=== PATIENT | male | born 1955 | race Caucasian/White ===

== ENCOUNTER → 2016-07-01 08:05 | Day surgery (SDC) | payer OTHER ==
[~2016-07-01 08:05] MED LIST: Acetaminophen TAB* 325 MG PO PRN; Buffered Lidocaine 1% SYR 3ML* 3 ML/SYR SYRINGE INTRADERM ONE; Cyclopentolate 1% OPTH.SOL* 2 ML BTL ONE; Flurbiprofen 0.03% OPTH.SOL* 2.5 ML BTL ONE; Lidocaine 1% MPF* 2 ML VIAL ONE; Lidocaine 2% EPI 1:200000 MPF* 20 ML VIAL ONE; Midazolam* 1 MG/ML 5 ML VIAL (5 MG) ONE; Neomycin/Polymy/Dex OPTH.SUSP* MAXITROL 0.1% 5 ML ONE; Phenylephrine 2.5% OPTH.SOL* 2 ML BTL ONE; Povidone Iodine 5% OPTH* 30 ML BTL ONE; Proparacaine 0.5% OPHTH.SOL* 15 ML BTL ONE; Trypan Blue 0.06% SOL* 0.5 ML BTL ONE; acetaZOLAMIDE TAB* 250 MG ONE
[2016-07-01 11:26] VITALS: BP 123/90
--- NOTE | 2016-07-01 11:45 | OP ---
DATE OF OPERATION: 07/01/2016. DATE OF : 1955. SURGEON: Joao Hui M.D. PREOPERATIVE DIAGNOSIS: Cataract right eye. POSTOPERATIVE DIAGNOSIS: Cataract right eye. OPERATIVE PROCEDURE: Phacoemulsification right eye with IOL. PROCEDURE: The patient was brought to the operating room after being given 1/2% Alcaine with epinep hrine drops in the preoperative area. The eye was prepped and draped in the usual sterile fashion. Sterile drape and eyelid speculum were placed. Again, topical 1/2% Alcaine with epinephrine was gi audi. A paracentesis incision was made at the 9 o'clock position with the No.75 blade. Clear cornea incision 2.2 x 2.2-mm was created at the 12 o'clock position starting at the anterior limbus using the 2.2-mm keratome. The anterior chamber was irrigated with 0.4 mL of 1% non-preservative intracam eral lidocaine and filled with DisCoVisc. A capsulorrhexis was completed using the cystotome and dominick e Utrata forceps. Hydrodissection was performed with balanced salt solution. The lens nucleus was r emoved with the Phacoemulsification handpiece without incident. Cortex was removed with the irrigat ion-aspiration handpiece. The capsular bag was re-inflated using DisCoVisc and an SN60WF 18.5 impla nt was inserted with the shooter. VisionBlue was used to sustain the anterior capsule prior to capsu lorrhexis. The irrigation-aspiration handpiece was used to remove all residual DisCoVisc. The eye was refilled with balanced salt solution and the wound checked and found to be watertight. Topical Maxitrol drops were given. Indication for complex cataract surgery: White cataract requiring capsular dye. [id number]/[facility] #: [id number]
== END | disposition home or self-care (01) ==
LOC: OREAST 08:05
PROVIDERS: ATTEND Specialist
DX: H25.811 Combined forms of age-related cataract, right eye (principal); I10 Essential (primary) hypertension; R00.2 Palpitations; J44.9 Chronic obstructive pulmonary disease, unspecified; F17.210 Nicotine dependence, cigarettes, uncomplicated
CPT/HCPCS: A9270-GY; J2250; V2632

== ENCOUNTER 2018-09-09 17:54 | Emergency (ER) | payer OTHER ==
[2018-09-09 18:10] VITALS: BP 146/82
--- NOTE | 2018-09-09 18:22 | UC ---
Respiratory Complaint HPI - HPI Summary HPI Summary: 62-year-old male comes in with a chief complaint of upper respiratory tract infection symptoms and COPD exacerbation symptoms. Patient has COPD. He uses inhalers. He got a new rescue inhaler 2 days ago it's almost empty because his been using it so much. He has had chills. His sputum is yellow. [place] very lightheaded like he might pass out this morning. He's also been having edema. No known history of CHF. I asked him about chest pain he says he has it on and off. No chest pain at this time. - History of Current Complaint Chief Complaint: UCRespiratory Stated Complaint: TROUBLE BREATHING Time Seen by Provider: 09/09/18 18:03 Pain Intensity: 0 - Allergies/Home Medications Allergies/Adverse Reactions: Allergies Allergy/AdvReac Type Severity Reaction Status Date / Time No Known Allergies Allergy Verified 09/09/18 18:10 Home Medications: Home Medications Albuterol HFA INHALER* [Ventolin HFA Inhaler*] 09/09/18 [History] Powder For Inhalation* 09/09/18 [History] PMH/Surg Hx/FS Hx/Imm Hx Previously Healthy: Yes Respiratory History: COPD - Surgical History Surgical History: Yes Surgery Procedure, Year, and Place: Tonsillectomy. Hernia Repair/Tumor Removal age 7 - Family History Known Family History: Positive: Non-Contributory - Social History Alcohol Use: None Alcohol Amount: beer 12 pack/day Substance Use Type: None Smoking Status (MU): Current Every Day Smoker Type: Cigarettes Amount Used/How Often: 1 1/2 PPD Length of Time of Smoking/Using Tobacco: 2 ppd Have You Smoked in the Last Year: Yes Household Exposure Type: Cigarettes - Immunization History Most Recent Influenza Vaccination: has not had Most Recent Tetanus Shot: 2010 he believes Most Recent Pneumonia Vaccination: approximately 10 years ago (1994/1995) Review of Systems All Other Systems Reviewed And Are Negative: Yes Constitutional: Positive: Chills Skin: Positive: Negative Eyes: Positive: Negative ENT: Positive: Nasal Discharge, Sinus Congestion Respiratory: Positive: Shortness Of Breath, Cough, Other - SEE HPI Cardiovascular: Positive: Chest Pain Gastrointestinal: Positive: Negative Motor: Positive: Negative Neurovascular: Positive: Negative Musculoskeletal: Positive: Edema Neurological: Positive: Negative Psychological: Positive: Negative Is Patient Immunocompromised?: No Physical Exam Triage Information Reviewed: Yes Appearance: No Pain Distress, Well-Nourished, Ill-Appearing - MILD, Other: - MILDLY SOB Vital Signs: Initial Vital Signs Temp 97.9 F 09/09/18 18:04 Pulse 95 09/09/18 18:04 Resp 20 09/09/18 18:04 BP 146/82 09/09/18 18:04 Pulse Ox 92 09/09/18 18:04 Vital Signs Reviewed: Yes Eye Exam: Normal Eyes: Positive: Conjunctiva Clear ENT: Positive: Pharyngeal erythema, Nasal congestion, Nasal drainage, TMs normal Neck: Positive: Supple Respiratory: Positive: No respiratory distress, Wheezing - B/L Cardiovascular: Positive: RRR Musculoskeletal: Positive: Edema @ Neurological: Positive: Alert, Muscle Tone Normal Psychological Exam: Normal Psychological: Positive: Age Appropriate Behavior Skin Exam: Normal Respiratory Course/Dx - Course Course Of Treatment: Patient's oxygen saturation is 91-92% on room air here in clinic. Patient has bilateral wheezing. He also has pedal edema. States that he's used almost all of his albuterol inhaler in 2 days. Because of all these factors I recommended further evaluation and care and treatment in the emergency department. Patient prefers to go by POV. Patient did not have altered mental status in clinic. - Differential Dx/Diagnosis Provider Diagnosis: Shortness of breath, Hypoxia, COPD (chronic obstructive pulmonary disease) Discharge - Sign-Out/Discharge Documenting (check all that apply): Patient Departure All imaging exams completed and their final reports reviewed: No Studies - Discharge Plan Condition: Stable Disposition: HOME-RECOMMEND TO ED Patient Education Materials: COPD (Chronic Obstructive Pulmonary Disease) (ED) , Hypoxia (ED), Shortness of Breath (ED) Referrals: Zoya Broderick MD [Primary Care Provider] - Additional Instructions: GO DIRECTLY TO THE EMERGENCY DEPARTMENT FOR FURTHER EVALUATION. - Billing Disposition and Condition Condition: STABLE Disposition: Home-Recommend to ED
== END 2018-09-09 18:25 | disposition home health service (06) ==
LOC: UCEAST 17:54
DX: J44.1 Chronic obstructive pulmonary disease with (acute) exacerbation (principal); R06.02 Shortness of breath; R09.02 Hypoxemia; Z79.51 Long term (current) use of inhaled steroids; F17.210 Nicotine dependence, cigarettes, uncomplicated
CPT/HCPCS: 99212; G0463

== ENCOUNTER 2018-09-09 18:49 | Observation (INO) | payer OTHER ==
[2018-09-09] MEDS ORDERED: predniSONE TAB* 20 MG PO ONE (23:45)
[2018-09-09] MEDS ORDERED: Albuterol/Ipratropium NEB.SOL* Albuterol 2.5 MG/Ipratropium 0.5 MG 3 ML INH ONE (23:45)
[2018-09-10 00:01] LABS: ABS Basophils 0 10^3/ul (0-0.2); ABS Lymphocytes 1.8 10^3/ul (1.0-4.8); ABS Monocytes 1.2 10^3/ul (0-0.8); ABS Neutrophils 5.9 10^3/ul (1.5-7.7); ABS Nucleated RBC 0 10^3/ul; Eosinophil % 10.4 %; Hematocrit 52 % (36-46); Hemoglobin 17.2 g/dL (14.0-18.0); Lymphocyte % 17.7 %; Mean Corpuscular HGB Conc 33 g/dL (31-36); Mean Corpuscular Hemoglobin 32 pg (27-31); Mean Corpuscular Volume 95 fL (80-94); Mean Platelet Volume 7.8 fL (7.4-10.4); Nucleated Red Blood Cells % 0; Platelet Count 323 10^3/uL (150-450); Red Blood Count 5.46 10^6 /uL (4.18-5.48); Red Cell Distribution Width 15 % (10.5-15)
[2018-09-10 00:26] LABS: Albumin 4.4 g/dL (3.2-5.2); Albumin/Globulin Ratio 1.5 (1-3); BUN/Creatinine Ratio 12.3 (8-20); Calcium 9.5 mg/dL (8.6-10.3); EGFR African American 117.6 (>60); EGFR Non-African American 97.2 (>60); Total Bilirubin 0.4 mg/dL (0.2-1.0); Total Protein 7.4 g/dL (6.4-8.9); Troponin I 0.01 ng/mL (<0.04)
[2018-09-10] MEDS ORDERED: Albuterol/Ipratropium NEB.SOL* Albuterol 2.5 MG/Ipratropium 0.5 MG 3 ML INH ONE (00:42)
[2018-09-10 01:13] LABS: Influenza A Molecular NEGATIVE (Negative); Influenza B Molecular NEGATIVE (Negative)
--- NOTE | 2018-09-10 02:39 | ED ---
Shortness of Breath - HPI Summary HPI Summary: Patient complains of progression or exertional SOB 1 week, subjective fever, body aches. Patient states history of intermittent fever and body aches 1 year. History of COPD. Patient states he has inhaler which he has almost used up. Denies home O2 for nebulizer. Denies change in chronic cough, sore throat , ear pain, ESCOTO, neck stiffness, CP, N/V/V abdominal pain, change in urine, change in BM. Medical history COPD. - History of Current Complaint Chief Complaint: EDShortnessOfBreath Time Seen by Provider: 09/09/18 23:37 Hx Obtained From: Patient Onset/Duration: Gradual Onset, Lasting Days Timing: Constant Current Severity: Moderate Dyspnea At: Exertion Aggrevating Factors: Movement Alleviating Factors: Bronchodilators Associated Signs & Symptoms: Fever - Allergy/Home Medications Allergies/Adverse Reactions: Allergies Allergy/AdvReac Type Severity Reaction Status Date / Time No Known Allergies Allergy Verified 09/09/18 19:02 PMH/Surg Hx/FS Hx/Imm Hx Endocrine/Hematology History: Denies: Hx Diabetes, Hx Thyroid Disease Cardiovascular History: Denies: Hx Hypertension Respiratory History: Reports: Hx Asthma, Hx Chronic Obstructive Pulmonary Disease (COPD) GI History: Denies: Hx Ulcer Sensory History: Reports: Hx Cataracts - RIGHT EYE, Hx Contacts or Glasses - GLASSES Denies: Hx Hearing Aid Opthamlomology History: Reports: Hx Cataracts - RIGHT EYE, Hx Contacts or Glasses - GLASSES Neurological History: Reports: Other Neuro Impairments/Disorders - EPISODES OF PASSING OUT- "BODY STARTS JERKING"LAST TIME 1 MONTH AGO - Surgical History Surgery Procedure, Year, and Place: Tonsillectomy. Hernia Repair/Tumor Removal age 7 Hx Anesthesia Reactions: No Infectious Disease History: No Infectious Disease History: Reports: History Other Infectious Disease - SPINAL MENINGITIS, [place] MTN FEVER Denies: Hx Clostridium Difficile, Hx Hepatitis, Hx Human Immunodeficiency Virus (HIV), Hx of Known/Suspected MRSA, Hx Shingles, Hx Tuberculosis, Traveled Outside the [place] in Last 30 Days - Family History Known Family History: Positive: Non-Contributory - Social History Alcohol Use: None Alcohol Amount: quit about a month ago Substance Use Type: Reports: None Hx Tobacco Use: Yes Smoking Status (MU): Heavy Every Day Tobacco Smoker Type: Cigarettes Amount Used/How Often: 1 1/2 PPD Length of Time of Smoking/Using Tobacco: 2 ppd Have You Smoked in the Last Year: Yes Review of Systems Positive: Fever Eyes: Negative ENT: Negative Cardiovascular: Negative Positive: Shortness Of Breath, Cough Gastrointestinal: Negative Genitourinary: Negative Musculoskeletal: Negative Skin: Negative Neurological: Negative Psychological: Normal All Other Systems Reviewed And Are Negative: Yes Physical Exam - Summary Physical Exam Summary: Bilateral wheezing consistent with COPD. Regular rate and rhythm. No obvious distress. Triage Information Reviewed: Yes Vital Signs On Initial Exam: Initial Vitals Temp Pulse Resp BP Pulse Ox 99 F 89 20 122/87 89 09/09/18 18:59 09/09/18 18:59 09/09/18 18:59 09/09/18 18:59 09/09/18 18:59 Vital Signs Reviewed: Yes Appearance: Positive: Well-Appearing Skin: Positive: Warm Head/Face: Positive: Normal Head/Face Inspection Eyes: Positive: Normal Neck: Positive: Supple Respiratory/Lung Sounds: Positive: Wheezes Cardiovascular: Positive: Normal Abdomen Description: Positive: Nontender Musculoskeletal: Positive: Normal Neurological: Positive: Normal Psychiatric: Positive: Normal AVPU Assessment: Alert - Tia Coma Scale Best Eye Response: 4 - Spontaneous Best Motor Response: 6 - Obeys Commands Best Verbal Response: 5 - Oriented Coma Scale Total: 15 Diagnostics - Vital Signs Vital Signs Temp Pulse Resp BP Pulse Ox 09/10/18 01:20 78 19 127/76 92 09/10/18 01:01 81 16 95 09/10/18 01:00 72 17 91 09/10/18 00:49 77 17 112/87 90 09/10/18 00:23 81 22 92 09/10/18 00:20 85 26 133/85 91 09/10/18 00:02 88 89 09/09/18 23:53 87 14 96 09/09/18 20:50 98.2 F 86 20 124/69 91 09/09/18 19:16 94 09/09/18 18:59 99 F 89 20 122/87 89 - Laboratory Lab Results: Lab Results 09/09/18 09/09/18 09/09/18 Range/Units 23:53 23:53 23:53 WBC 10.0 (3.5-10.8) 10^3/uL RBC 5.46 (4.18-5.48) 10^6 /uL Hgb 17.2 (14.0-18.0) g/dL Hct 52 H (36-46) % MCV 95 H (80-94) fL MCH 32 H (27-31) pg MCHC 33 (31-36) g/dL RDW 15 (10.5-15) % Plt Count 323 (150-450) 10^3/uL MPV 7.8 (7.4-10.4) fL Neut % (Auto) 59.7 % Lymph % (Auto) 17.7 % [facility] % (Auto) 11.7 % Eos % (Auto) 10.4 % Baso % (Auto) 0.5 % Absolute Neuts (auto) 5.9 (1.5-7.7) 10^3/ul Absolute Lymphs (auto) 1.8 (1.0-4.8) 10^3/ul Absolute Monos (auto) 1.2 H (0-0.8) 10^3/ul Absolute Eos (auto) 1.0 H (0-0.6) 10^3/ul Absolute Basos (auto) 0 (0-0.2) 10^3/ul Absolute Nucleated RBC 0 10^3/ul Nucleated RBC % 0 ABG pH (7.35-7.45) ABG pCO2 (35-45) mmHg ABG pO2 (80-100) mmHg ABG HCO3 (19-31) mmol/L ABG O2 Saturation (94.0-98.0) % ABG Base Excess (-2.0-2.0) mmol/L Sodium 140 (135-145) mmol/L Potassium 4.0 (3.5-5.0) mmol/L Chloride 107 (101-111) mmol/L Carbon Dioxide 27 (22-32) mmol/L Anion Gap 6 (2-11) mmol/L BUN 10 (6-24) mg/dL Creatinine 0.81 (0.67-1.17) mg/dL Est GFR ( Amer) 117.6 (>60) Est GFR (Non-Af Amer) 97.2 (>60) BUN/Creatinine Ratio 12.3 (8-20) Glucose 90 (70-100) mg/dL Lactic Acid 1.3 (0.5-2.0) mmol/L Calcium 9.5 (8.6-10.3) mg/dL Total Bilirubin 0.40 (0.2-1.0) mg/dL AST 19 (13-39) U/L ALT 21 (7-52) U/L Alkaline Phosphatase 51 (34-104) U/L Troponin I 0.01 (<0.04) ng/mL Total Protein 7.4 (6.4-8.9) g/dL Albumin 4.4 (3.2-5.2) g/dL Globulin 3.0 (2-4) g/dL Albumin/Globulin Ratio 1.5 (1-3) Influenza A (Rapid) (Negative) Influenza B (Rapid) (Negative) 09/10/18 09/10/18 Range/Units 01:01 02:24 WBC (3.5-10.8) 10^3/uL RBC (4.18-5.48) 10^6 /uL Hgb (14.0-18.0) g/dL Hct (36-46) % MCV (80-94) fL MCH (27-31) pg MCHC (31-36) g/dL RDW (10.5-15) % Plt Count (150-450) 10^3/uL MPV (7.4-10.4) fL Neut % (Auto) % Lymph % (Auto) % [facility] % (Auto) % Eos % (Auto) % Baso % (Auto) % Absolute Neuts (auto) (1.5-7.7) 10^3/ul Absolute Lymphs (auto) (1.0-4.8) 10^3/ul Absolute Monos (auto) (0-0.8) 10^3/ul Absolute Eos (auto) (0-0.6) 10^3/ul Absolute Basos (auto) (0-0.2) 10^3/ul Absolute Nucleated RBC 10^3/ul Nucleated RBC % ABG pH 7.39 (7.35-7.45) ABG pCO2 46 H (35-45) mmHg ABG pO2 52 L* (80-100) mmHg ABG HCO3 26.3 (19-31) mmol/L ABG O2 Saturation 86.6 L (94.0-98.0) % ABG Base Excess 2.2 H (-2.0-2.0) mmol/L Sodium (135-145) mmol/L Potassium (3.5-5.0) mmol/L Chloride (101-111) mmol/L Carbon Dioxide (22-32) mmol/L Anion Gap (2-11) mmol/L BUN (6-24) mg/dL Creatinine (0.67-1.17) mg/dL Est GFR ( Amer) (>60) Est GFR (Non-Af Amer) (>60) BUN/Creatinine Ratio (8-20) Glucose (70-100) mg/dL Lactic Acid (0.5-2.0) mmol/L Calcium (8.6-10.3) mg/dL Total Bilirubin (0.2-1.0) mg/dL AST (13-39) U/L ALT (7-52) U/L Alkaline Phosphatase (34-104) U/L Troponin I (<0.04) ng/mL Total Protein (6.4-8.9) g/dL Albumin (3.2-5.2) g/dL Globulin (2-4) g/dL Albumin/Globulin Ratio (1-3) Influenza A (Rapid) Negative (Negative) Influenza B (Rapid) Negative (Negative) Result Diagrams: 09/09/18 23:53 09/09/18 23:53 Lab Statement: Any lab studies that have been ordered have been reviewed, and results considered in the medical decision making process. Course/Dx - Course Course Of Treatment: Patient complains of progression or exertional SOB 1 week , subjective fever, body aches. Patient states history of intermittent fever and body aches 1 year. History of COPD. Patient states he has inhaler which he has almost used up. Denies home O2 for nebulizer. Denies change in chronic cough, sore throat, ear pain, ESCOTO, neck stiffness, CP, N/V/V abdominal pain, change in urine, change in BM. Medical history COPD. Physical exam:Bilateral wheezing consistent with COPD. Regular rate and rhythm. No obvious distress. O2 sats on room air 85%. Vital signs otherwise unremarkable. PO2 52. Labs otherwise unremarkable. Chest x-ray negative. EKG sinus rhythm. Patient lung sounds did not improve after DuoNeb 2. Prednisone 60 mg by mouth. Patient O2 sats was ambulated dropped to low 80s. Patient admitted to hospitalist for COPD exacerbation and hypoxia. - Diagnoses Provider Diagnoses: COPD exacerbation, Hypoxia Discharge - Sign-Out/Discharge Documenting (check all that apply): Patient Departure Patient Received Moderate/Deep Sedation with Procedure: No - Discharge Plan Condition: Fair Disposition: ADMITTED TO [facility] Referrals: Zoya Broderick MD [Primary Care Provider] - - Billing Disposition and Condition Condition: FAIR Disposition: Admitted to [facility]
[2018-09-10] MEDS ORDERED: Albuterol HFA INHALER* 8 gm MDI INH PRN (04:03)
[2018-09-10] MEDS ORDERED: Acetaminophen TAB* 325 MG PO PRN (04:05)
[2018-09-10] MEDS ORDERED: Albuterol 2.5 MG/3 ML NEB.SOL* (0.083%) INH PRN (04:05)
[2018-09-10] MEDS ORDERED: Nicotine Inhaler* 10 MG AMP INH PRN (04:14)
[2018-09-10] MEDS ORDERED: Mouth Piece, Nicotine* 1 EACH CARTRIDGE INH ONE (04:50)
[2018-09-10] MEDS ORDERED: LORazepam TAB(*) 1 MG PO SCH (05:00)
[2018-09-10] MEDS: cefTRIAXone(*) 1 GM in NS 0.9% 50 ML* 50 ML IVPB SCH (05:59)
[2018-09-10] MEDS: Heparin VIAL(*) 5000 UNITS/ML VIAL (FIVE THOUSAND) SUBCUT SCH ×3 (06:23→21:19)
[2018-09-10] MEDS: Azithromycin IV(*) 500 MG in NS 0.9% 250 ML* 250 ML IVPB SCH (07:00)
--- NOTE | 2018-09-10 07:58 | HP ---
CC: Dr. Broderick * HISTORY AND PHYSICAL: DATE OF ADMISSION: 09/10/18 TIME OF EVALUATION: 3:55 a.m. PRIMARY CARE PROVIDER: Dr. Broderick. CHIEF COMPLAINT: Shortness of breath. HISTORY OF PRESENT ILLNESS: Mr. Mehta is a 62-year-old male with a past medical history of tobacco abuse, alcohol abuse, COPD, who presented to the emergency room with complaints of shortness of breath. He states that a week ago, he started to have progressive dyspnea initially with exertion, but then now it is also happening at rest. He describes a productive cough with whitish sputum that is not much different from his usual COPD cough. He thinks he had a fever at home, but has not measured a temperature. He denies chest pain, palpitations, nausea, vomiting, diarrhea, abdominal pain or urinary complaints. PAST MEDICAL HISTORY: 1. Tobacco abuse. 2. Alcohol abuse. 3. COPD. MEDICATIONS: 1. Albuterol HFA two puffs inhale q.6 hours p.r.n. shortness of breath. 2. Spiriva one puff inhale daily. 3. Advair 500/50 one puff inhale b.i.d. ALLERGIES: No known drug allergies. FAMILY HISTORY: The patient states that he has a strong family history of diabetes including his mother and sisters. SOCIAL HISTORY: The patient is a smoker since age 12 up to 2 packs a day. He states that since his symptoms started he has cutdown and one pack lasted him a week. He also describes significant alcohol intake of 10 to 12 beers every day. He states that usually he used to drink that when he was back home from work, but now that he is retired, he is drinking less. He stated that this past week because he was not feeling well, he has not had any alcohol. He denies any prior episodes of withdrawal. He denies drug use. 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 Surrogate decision maker is his daughter, Syl Mehta, phone number is [phone]. REVIEW OF SYSTEMS: A 14-point review of systems was performed and all the pertinent negative and positive findings are in the HPI. PHYSICAL EXAMINATION GENERAL: The patient is a pleasant elderly gentleman, sitting up in the ED stretcher, in no acute distress. VITAL SIGNS: Temperature is 98.2, heart rate is 93, respiratory rate is 19, oxygen saturation is 92% on 2 L of nasal cannula. Blood pressure is 127/76. HEENT: Pupils are equal. Moist mucous membranes. CHEST: Breath sounds bilaterally diminished with scattered wheeze and rhonchi throughout. CVS: Normal S1, S2. Regular rate and rhythm. ABDOMEN: Soft. Bowel sounds present. EXTREMITIES: Without edema. NEUROLOGIC: He is alert and oriented x3. Able to move all 4 extremities. DIAGNOSTIC STUDIES/LAB DATA: The patient had a CBC that showed WBC of 10, hemoglobin of 17.2, hematocrit of 52, with 323,000 platelets. D-dimer was 210. ABG showed a pH of 7.39, PCO2 of 46, PO2 of 52, bicarb of 26.3. Chemistries showed a sodium of 140, potassium 4.0, chloride of 107, bicarb of 27, BUN of 10 , creatinine of 0.8, glucose of 90, lactic acid is 1.3, calcium of 9.5. LFTs are normal. Troponins are 0.01. Rapid influenza was negative. EKG done on 09/09/18 at 7:06 p.m. shows sinus rhythm at 85 beats per minute with no acute ischemic change. There is incomplete right bundle branch block and a left fascicular block. There is no significant change when compared to his prior EKG from 2016. Chest x-ray is not yet officially read by Radiology, but to my read it shows hyperinflation, but no signs of acute pulmonary disease. I do not see pneumothorax, but we will follow the official radiologist report. ASSESSMENT AND PLAN: Mr. Mehta is a 62-year-old male with a past medical history of tobacco abuse, alcohol abuse, COPD, who presented to the emergency room with complaints of shortness of breath and cough, found to have COPD exacerbation. 1. Acute hypoxemic respiratory failure. I suspect the patient has probably been hypoxic for sometime, but was unaware. In the emergency room, he decelerated to 86% on room air with ambulation. We will continue supplemental oxygen. 2. Acute chronic obstructive pulmonary disease exacerbation secondary to bronchitis. The patient's chest x-ray does not show an infiltrate. He will be started on ceftriaxone, Zithromax, steroids and we will continue his bronchodilators. 3. Tobacco abuse. The patient was encouraged to quit smoking and he was advised about the risks of continuing to smoke including but not limited to progression of lung disease and multiple types of cancer as well as heart and vascular disease. 4. Alcohol abuse. The patient says that he has already cutdown on the amount of alcohol he drinks. I will put him on a [facility] protocol to monitor, but at this time there is no sign of withdrawal. 5. DVT prophylaxis. The patient has a score of 2 on the DVT Prophylaxis Assessment Guide and he will be started on subcutaneous heparin. 6. Code status is full. TIME SPENT: Approximately 45 minutes was spent with the patient interview, medical records review, physical examination to complete this admission, more than half of this time was spent [id number] with the patient in coordination of care. [id number]/[facility] #: [id number] EMMANUEL
[2018-09-10] MEDS: Mometasone/Formoter 200/5 MDI INH SCH ×2 (08:32→19:06)
[2018-09-10] MEDS: Multivitamins/Minerals TAB PO SCH (09:10)
[2018-09-10] MEDS: Folic Acid TAB* 1 MG PO SCH (09:10)
[2018-09-10] MEDS: Thiamine TAB* 100 MG TAB PO SCH (09:11)
[2018-09-10] MEDS: predniSONE TAB* 20 MG PO SCH (09:11)
[2018-09-10] MEDS: TIOTROPIUM BROMIDE INH SCH (09:20)
--- NOTE | 2018-09-10 16:22 | PN ---
Subjective Date of Service: 09/10/18 Interval History: Mr. Mehta is feeling much better today. His SOB has resolved and his cough has improved significantly. He has been up ambulating to the bathroom and has not experienced any SOB. Less sputum production. Anxious to go home. Reports he has a dog at home alone and does not have heat. He does not have anyone that can feed his dog or watch his home. Says he needs to leave early tomorrow morning at the latest. Nursing titrated oxygen down from 4L to 2L. Family History: Unchanged from Admission Social History: Unchanged from Admission Past Medical History: Unchanged from Admission Objective Active Medications: Acetaminophen (Tylenol Tab*) 650 mg PO Q6H PRN pain/fever Albuterol (Ventolin Hfa Inhaler*) 1 puff INH Q6H PRN SOB/WHEEZING Albuterol (Ventolin 2.5 Mg/3 Ml Neb.Concepcion*) 2.5 mg INH Q4H PRN SOB/WHEEZING Folic Acid (Folvite Tab*) 1 mg PO DAILY [facility] Heparin Sodium (Porcine) (Heparin Vial(*)) 5,000 units SUBCUT Q8HR MEAGAN Ceftriaxone Sodium 1 gm/ (Sodium Chloride) 50 mls @ 200 mls/hr IVPB Q24H MEAGAN Azithromycin 500 mg/ Sodium (Chloride) 250 mls @ 250 mls/hr IVPB Q24H MEAGAN Mometasone Furoate/Formoterol Fumar (Dulera 200/5 Mdi*) 2 puff INH BID MEAGAN Multivitamins/Minerals (Theragran/Minerals Tab*) 1 tab PO DAILY [facility] Nicotine (Nicotine Inhaler*) 10 mg INH Q2H PRN CRAVING Prednisone (Deltasone Tab*) 40 mg PO DAILY [facility] Thiamine HCl (Vitamin B-1 Tab*) 100 mg PO DAILY [facility] Tiotropium [place] (Spiriva Respimat 2.5 Mcg(Nf)) 1 puff INH DAILY [facility] Oxygen Devices in Use Now: Nasal Cannula - 2L Appearance: Middle-aged male sitting in bed in NAD Eyes: No Scleral Icterus Ears/Nose/Mouth/Throat: Mucous Membranes Moist Neck: NL Appearance and Movements; NL JVP, Trachea Midline Respiratory: Symmetrical Chest Expansion and Respiratory Effort, - - Mild wheezing throughout Cardiovascular: NL Sounds; No Murmurs; No JVD, RRR Abdominal: NL Sounds; No Tenderness; No Distention Extremities: No Edema Skin: No Rash or Ulcers Neurological: Alert and Oriented x 3 Lines/Tubes/Other Access: Clean, Dry and Intact Peripheral IV Nutrition: Taking PO's Result Diagrams: 09/09/18 23:53 09/09/18 23:53 Assess/Plan/Problems-Billing Assessment: Mr. Mehta is a 62 yo M with PMH of COPD, tobacco use, and alcohol abuse; who presented to the ED with c/o SOB and was found to have a COPD exacerbation with acute respiratory failure. - Patient Problems (1) COPD exacerbation Code(s): J44.1 - CHRONIC OBSTRUCTIVE PULMONARY DISEASE W (ACUTE) EXACERBATION Comment: - Secondary to bronchitis - CXR shows obstructive lung disease, but no pneumonia - Continue ceftriaxone, azithromycin, prednisone, Dulera, Spiriva, nebs (2) Acute respiratory failure with hypoxia Code(s): J96.01 - ACUTE RESPIRATORY FAILURE WITH HYPOXIA Comment: - Secondary to COPD exacerbation - Requiring up to 4L, now down to 2L and saturating in the low 90s - Plan as above (3) Tobacco dependence Code(s): F17.200 - NICOTINE DEPENDENCE, UNSPECIFIED, UNCOMPLICATED Comment: - Encourage cessation - Continue nicotine inhaler (4) Alcohol abuse Code(s): F10.10 - ALCOHOL ABUSE, UNCOMPLICATED Comment: - Was placed on WAM, but was not showing symptoms of withdrawal and has not had a drink in approx 1 week - Encourage abstinence - WAM d/c'd - Continue folic acid, multivitamin, thiamine (5) DVT prophylaxis Comment: - Heparin SQ (6) Full code status Code(s): Z78.9 - OTHER SPECIFIED HEALTH STATUS Comment: Status and Disposition: Observation for COPD exacerbation. Anticipate d/c home when saturating well on RA, hopefully tomorrow AM. Attending: Kian Mcdonnell
[2018-09-11] MEDS: cefTRIAXone(*) 1 GM in NS 0.9% 50 ML* 50 ML IVPB SCH (04:57)
[2018-09-11] MEDS: Heparin VIAL(*) 5000 UNITS/ML VIAL (FIVE THOUSAND) SUBCUT SCH (05:00)
[2018-09-11] MEDS: Azithromycin IV(*) 500 MG in NS 0.9% 250 ML* 250 ML IVPB SCH (05:30)
[2018-09-11 07:56] VITALS: BP 115/74
[2018-09-11] MEDS: predniSONE TAB* 20 MG PO SCH (08:05)
[2018-09-11] MEDS: Folic Acid TAB* 1 MG PO SCH (08:05)
[2018-09-11] MEDS: Multivitamins/Minerals TAB PO SCH (08:05)
[2018-09-11] MEDS: Thiamine TAB* 100 MG TAB PO SCH (08:05)
[2018-09-11] MEDS: Mometasone/Formoter 200/5 MDI INH SCH (08:11)
[2018-09-11] MEDS ORDERED: Nicotine PATCH 21 MG/24 HR* PATCH TRANSDERM SCH (10:00)
[2018-09-11] MEDS: TIOTROPIUM BROMIDE INH SCH (10:06)
[2018-09-11] MEDS ORDERED: Nicotine Patch Removal NOTE PATCH OFF SCH (21:00)
--- NOTE | 2018-09-11 22:26 | DS ---
CC: Dr. Zoya Broderick * DISCHARGE SUMMARY: DATE OF ADMISSION: 09/10/18 DATE OF DISCHARGE: 09/11/18 PRIMARY CARE PROVIDER: Dr. Zoya Broderick. ATTENDING PHYSICIAN: Dr. Kian Mcdonnell * (dictated by Brenad Lopez NP) PRIMARY DIAGNOSES: 1. Chronic obstructive pulmonary disease exacerbation. 2. Acute hypoxic respiratory failure. SECONDARY DIAGNOSES: 1. Tobacco dependence. 2. Alcohol abuse. STUDIES WHILE IN THE HOSPITAL: 1. EKG on 09/09/18 shows normal sinus rhythm with a rate of 85. EKG reports 55 , incomplete right bundle-branch block, this is consistent with previous EKGs on file. 2. Chest x-ray on 09/01/18 reads as stigmata of obstructive lung disease. No acute pulmonary or cardiac process evident. HISTORY OF PRESENT ILLNESS AND HOSPITAL COURSE: Mr. Mehta is a 62-year-old with past medical history of COPD and alcohol abuse, who presented to the emergency room on 09/09/18 with complaints of shortness of breath. Please see the history and physical by Dr. Buchanan for complete summary of the events leading up to this hospitalization. In short, the patient is a current smoker, who has been previously diagnosed with COPD. He was developing progressive shortness of breath at home on exertion, though abnormally this shortness of breath progressed to shortness of breath at rest, so he presented to the emergency room. In the emergency room, he was noted to be hypoxic with an oxygen saturation of 86% on room air with ambulation. He had an ABG with a pH of 7.39, pO2 was noted to be 52, and pCO2 was 46. Because of this acute hypoxic respiratory failure, the patient was admitted by the hospitalist service. He was placed on ceftriaxone, azithromycin for presumed bronchitis. He was initially placed on prednisone. He was requiring up to 4 L of oxygen to maintain saturations in the 90s. During the day on 09/10/18, the patient did report feeling improved and reported no shortness of breath on exertion. He was able to be titrated down to 2 L at rest. As of today, the patient is still requiring supplemental oxygen. He is very adamant that he needs to return home as he does not have heat in his house and he needs to feed his dogs. He does not have anyone who is able to help him with those things. I did have the nurse do a walk test with him and he was noted to desaturate to 84% while ambulating on room air. I did have a very long conversation with the patient about his diagnosis of COPD, his tobacco dependence, and treatment of this current exacerbation. The patient does have capacity and was able to verbalize the risks of leaving against medical advice such as hypoxia, worsening respiratory failure, respiratory arrest or . He reports that he lives at home in the trailer and said he does not have very far to ambulate at home and feels as though he will do fine. Mr. Mehta is leaving against medical advice today. Most recent vital signs are as follows: Temp 97.5, heart rate 75, respiratory rate 14, oxygen saturation 91% on 3 L, nasal cannula at rest, blood pressure 115/74. DISCHARGE MEDICATIONS: New medications: 1. Amoxicillin 1000 mg p.o. t.i.d. x3 days. 2. Azithromycin 500 mg p.o. daily x3 days. 3. Folic acid 1 mg p.o. daily. 4. Multivitamin 1 tab p.o. daily. 5. Nicotine patch 21 mg 1 patch transdermal daily. 6. Thiamine 100 mg p.o. daily. 7. Prednisone 10 mg taper (take 3 tabs for 2 days, then 2 tabs for 2 tabs, then 1 tab for 2 days). Continued medications: 1. Albuterol MDI 2 puffs q.4 hours p.r.n. shortness of breath wheezing. 2. Advair Diskus 500/50 one puff b.i.d. 3. Spiriva Respimat 2 puffs daily. DISCHARGE PLAN: Mr. Mehta will be leaving against medical advice today. Activity will be as tolerated though he has been advised to partake in minimal activity due to his known hypoxia with exertion. Diet will be regular as tolerated. Medications are noted above. Although the patient is leaving against medical advice, it is still necessary to treat him accordingly and to the best of my ability. I have prescribed him an additional 3 days of amoxicillin and azithromycin to complete a total of 5 days of antibiotic therapy for his presumed bronchitis and COPD exacerbation. I have prescribed a prednisone taper. I did speak at length with the patient about smoking cessation and the need to quit smoking in order to prevent further rapid deterioration in his respiratory status. He was agreeable to try nicotine patches and so I have sent in a script for those. The patient did report to me that prior to admission to the hospital, he used 1 full albuterol MDI within 2 days. I did speak at length with the patient about this and advised to him that he is not to take more than 2 puffs every 4 hours of albuterol as he can overdose from this medication and ultimately could . I have sent in a refill for his albuterol. He can continue his other usual medications as noted and I would recommend him continuing to take a multivitamin, thiamine, and folic acid due to his chronic alcohol abuse. Again, ideally the patient would remain hospitalized due to his continued hypoxia and need for supplemental oxygen, though he is not agreeable to this. He reports that he will speak with his PCP and attempt to obtain home oxygen, though he was not willing to wait here today to do so. He should follow up with his PCP as soon as possible, preferably within the next week. He does report that he has a surtass analyst in the [facility], which he has not seen for 2 years, though he will be making an appointment. He has been advised to return to the emergency room or nearest hospital for any worsening of symptoms, shortness of breath, lightheadedness, dizziness, chest discomfort, high fevers, chills, night sweats , loss of consciousness, or any other worrisome signs or symptoms. DISCHARGE CONDITION: Fair. DISCHARGE DISPOSITION: Against medical advice. This is a summarized report of a complex medical history and hospital stay. For further details, please see the entire medical record. TIME SPENT: Approximately 60 minutes was spent on this discharge. BRENDA LOPEZ NP [id number]/CPS #: [id number] EMMANUEL
== END 2018-09-11 12:00 | disposition left against medical advice (07) ==
LOC: ED 18:49 → MED 09-10 03:56
PROVIDERS: ADMIT Internal Medicine; ATTEND Internal Medicine
DX: J44.1 Chronic obstructive pulmonary disease with (acute) exacerbation (principal); J96.01 Acute respiratory failure with hypoxia; F17.210 Nicotine dependence, cigarettes, uncomplicated; F10.10 Alcohol abuse, uncomplicated; R50.9 Fever, unspecified
CPT/HCPCS: 36415; 71046; 80053; 82803; 83605; 84484; 85025; 85379; 87040; 93005; 94640; 96365; 96366; 96372; 99284; A9270-GY; G0378; J0456; J0696; J1644; J7512

== ENCOUNTER 2018-11-04 20:29 | Inpatient (IN) | payer MEDICARE, MEDICAID ==
[2018-11-04] MEDS ORDERED: Albuterol 0.5% CONC NEB.SOL* 5 MG/ML 20 ml BOT INH ONE (20:37)
[2018-11-04] MEDS ORDERED: cefTRIAXone(*) 1 GM in NS 0.9% 50 ML* 50 ML IVPB ONE (20:37)
[2018-11-04] MEDS ORDERED: methylPREDNISolone 125 MG* 2 ML VIAL IV ONE (20:37)
[2018-11-04] MEDS ORDERED: Azithromycin 500 mg/250 ml NS 500 MG/250 ML BAG IVPB ONE (20:37)
--- NOTE | 2018-11-04 20:59 | ED ---
Shortness of Breath - HPI Summary HPI Summary: Pt is a 62 y/o M presenting to the ED brought in by EMS for shortness of breath first onset last night. He states he has COPD and his Oxygen level was down to 76 last night, and his SOB has gotten worse throughout the day. He also reports chest tightness and hx of smoking, but denies fevers or hx of HTN and DM. - History of Current Complaint Chief Complaint: EDShortnessOfBreath Time Seen by Provider: 11/04/18 20:34 Hx Obtained From: Patient Onset/Duration: Sudden Onset, Lasting Days, Still Present Timing: Constant Current Severity: Moderate Dyspnea At: Rest Aggrevating Factors: Nothing Alleviating Factors: Nothing Associated Signs & Symptoms: Chest Pain Unrelated to Cough - Allergy/Home Medications Allergies/Adverse Reactions: Allergies Allergy/AdvReac Type Severity Reaction Status Date / Time No Known Allergies Allergy Verified 09/09/18 19:02 PMH/Surg Hx/FS Hx/Imm Hx Previously Healthy: No Endocrine/Hematology History: Denies: Hx Diabetes, Hx Thyroid Disease Cardiovascular History: Denies: Hx Hypertension Respiratory History: Reports: Hx Asthma, Hx Chronic Obstructive Pulmonary Disease (COPD) GI History: Denies: Hx Ulcer Sensory History: Reports: Hx Cataracts - RIGHT EYE, Hx Contacts or Glasses - GLASSES Denies: Hx Hearing Aid Opthamlomology History: Reports: Hx Cataracts - RIGHT EYE, Hx Contacts or Glasses - GLASSES Neurological History: Reports: Other Neuro Impairments/Disorders - EPISODES OF PASSING OUT- "BODY STARTS JERKING"LAST TIME 1 MONTH AGO - Surgical History Surgery Procedure, Year, and Place: Tonsillectomy. Hernia Repair/Tumor Removal age 7 Hx Anesthesia Reactions: No - Immunization History Date of Tetanus Vaccine: utd Date of Influenza Vaccine: none Infectious Disease History: No Infectious Disease History: Reports: History Other Infectious Disease - SPINAL MENINGITIS, WALLACE MTN FEVER Denies: Hx Clostridium Difficile, Hx Hepatitis, Hx Human Immunodeficiency Virus (HIV), Hx of Known/Suspected MRSA, Hx Shingles, Hx Tuberculosis, Traveled Outside the [place] in Last 30 Days - Family History Known Family History: Negative: Cardiac Disease - Social History Alcohol Use: Rare Alcohol Amount: pt states none for one month now Hx Substance Use: No Substance Use Type: Reports: None Hx Tobacco Use: Yes Smoking Status (MU): Heavy Every Day Tobacco Smoker Type: Cigarettes Amount Used/How Often: 1 1/2 PPD Length of Time of Smoking/Using Tobacco: 2 ppd Have You Smoked in the Last Year: Yes Review of Systems Negative: Fever Positive: Chest Pain Positive: Shortness Of Breath All Other Systems Reviewed And Are Negative: Yes Physical Exam - Summary Physical Exam Summary: Appearance: Chronically ill-appearing, Well-nourished, lying in bed comfortably Skin: Warm, dry, no obvious rash Eyes: sclera anicteric, no conjunctival pallor ENT: mucous membranes moist, pharynx appears normal Neck: Supple, nontender Respiratory: Mild tachypnea, speaking in full sentences but does have diffuse expiratory wheezes with mildly impaired aeration and prolonged expiration. Cardiovascular: Normal S1, S2. No murmurs. Normal distal pulses in tibial and radial bilaterally. Abdomen: Soft, nontender, normal active bowel sounds present Musculoskeletal: No significant edema in bilateral legs, Strength/ROM Intact Neurological: A&Ox3, awake and alert, mentation is normal, speech is fluent and appropriate Psychiatric: affect is normal, does not appear anxious or depressed Triage Information Reviewed: Yes Vital Signs On Initial Exam: Initial Vitals Temp Pulse Resp BP Pulse Ox 98.5 F 94 19 134/90 90 11/04/18 20:33 11/04/18 20:33 11/04/18 20:33 11/04/18 20:33 11/04/18 20:33 Vital Signs Reviewed: Yes Diagnostics - Vital Signs Vital Signs Temp Pulse Resp BP Pulse Ox 11/04/18 20:33 98.5 F 94 19 134/90 90 - Laboratory Result Diagrams: 11/06/18 07:37 11/06/18 07:37 Lab Statement: Any lab studies that have been ordered have been reviewed, and results considered in the medical decision making process. - Radiology CXR Radiology Interpretation Completed By: ED Physician Summary of Radiographic Findings: No acute process. Pending official radiology report. - EKG 2033 Cardiac Rate: NL - 96bpm EKG Rhythm: Sinus Rhythm ST Segment: Normal Ectopy: None Summary of EKG Findings: EKG at 2033 shows NSR at 96bpm and RVH with secondary repolarization that is abnormal, but no STEMI. Course/Dx - Course Course Of Treatment: Pt is a 62 y/o M presenting to the ED brought in by EMS for shortness of breath first onset last night. He states he has COPD and his Oxygen level was down to 76 last night, and his SOB has gotten worse throughout the day. He also reports chest tightness and hx of smoking, but denies fevers or hx of HTN and DM. EKG at 2033 shows NSR at 96bpm and RVH with secondary repolarization that is abnormal, but no STEMI. In the ED course, the pt was given an Albuterol breathing tx as well as Azithromycin, Methylprednisolone, and Ceftriaxone. CXR shows no acute process, pending official radiology report. Pts VBG shows pH of 7.3, pCO2 of 75, HCO3 of 29.3, O2 sat of 42.1, and base excess of 7.6. I spoke with Dr. Casanova at 2221 about the pt's present condition who [place] [facility] [place]. - Diagnoses Differential Diagnosis/HQI/PQRI: Positive: Asthma, Bronchitis, CHF, Pneumonia, Pneumothorax, Pulmonary Embolism, Pulmonary Edema Provider Diagnoses: COPD (chronic obstructive pulmonary disease) - Critical Care Time Critical Care Time: 30-74 min Discharge - Sign-Out/Discharge Documenting (check all that apply): Patient Departure Patient Received Moderate/Deep Sedation with Procedure: No - Discharge Plan Condition: Stable Disposition: ADMITTED TO [facility] - Billing Disposition and Condition Condition: STABLE Disposition: Admitted to [facility] - Attestation Statements Document Initiated by Terence: Yes Documenting Scribe: Cathi Wang Provider For Whom Terence is Documenting (Include Credential): Jamison Morris MD. Scribe Attestation: ICathi, scribed for Jamison Morris MD. on 11/08/18 at 1849. Scribe Documentation Reviewed: Yes Provider Attestation: The documentation as recorded by the Cathi silver accurately reflects the service I personally performed and the decisions made by me, Jamison Morris MD. Status of Scribe Document: Viewed Consult Consult: 2221 - I spoke with Dr. Casanova about the pt's present condition who will be [place] the [place] [facility] [place] dx of [place].
[2018-11-04 21:33] LABS: ABS Basophils 0.1 10^3/ul (0-0.2); ABS Eosinophils 0.5 10^3/ul (0-0.6); ABS Lymphocytes 2.1 10^3/ul (1.0-4.8); ABS Monocytes 0.8 10^3/ul (0-0.8); ABS Neutrophils 4.2 10^3/ul (1.5-7.7); Eosinophil % 6.5 %; Hematocrit 54 % (42-52); Hemoglobin 17.7 g/dL (14.0-18.0); Lymphocyte % 27.4 %; Mean Corpuscular HGB Conc 33 g/dL (31-36); Mean Corpuscular Hemoglobin 31 pg (27-31); Mean Corpuscular Volume 94 fL (80-94); Mean Platelet Volume 7.9 fL (7.4-10.4); Platelet Count 270 10^3/uL (150-450); Red Blood Count 5.72 10^6 /uL (4.18-5.48); Red Cell Distribution Width 14 % (10.5-15); White Blood Count 7.6 10^3/uL (3.5-10.8)
[2018-11-04 21:52] LABS: Albumin 4.3 g/dL (3.2-5.2); Albumin/Globulin Ratio 1.3 (1-3); BUN/Creatinine Ratio 9.5 (8-20); Calcium 9.8 mg/dL (8.6-10.3); EGFR African American 130.5 (>60); EGFR Non-African American 107.9 (>60); Globulin 3.2 g/dL (2-4); Potassium 4.5 mmol/L (3.5-5.0); Total Bilirubin 0.5 mg/dL (0.2-1.0); Total Protein 7.5 g/dL (6.4-8.9)
[2018-11-05] MEDS ORDERED: Nicotine Lozenge* 4 MG LOZENGE MT PRN (00:42)
[2018-11-05] MEDS ORDERED: Albuterol 2.5 MG/3 ML NEB.SOL* (0.083%) INH SCH (01:00)
[2018-11-05] MEDS: methylPREDNISolone SOD 40 MG* 1 ML VIAL IV SCH ×2 (02:30→14:21)
--- NOTE | 2018-11-05 05:06 | HP ---
CC: Dr. Broderick HISTORY AND PHYSICAL: DATE OF ADMISSION: 11/05/18 PRIMARY CARE PROVIDER: Dr. Broderick. CHIEF COMPLAINT: Shortness of breath. HISTORY OF PRESENT ILLNESS: Mr. eMhta is a 62-year-old male who has a history of ongoing tobacco ab use and COPD, who presents to the emergency room with complaints of shortness of breath. The patient states that over the last 1 week or so, he has noted that his breathing has become difficult. [facility] in the month around 10/13/18, the patient had wheezing noted by his PCP. He was started on a pred nisone taper as well as some other medication. He states that he felt better following that treatmen t; however, his breathing again has worsened about 1 week ago. In addition to feeling short of breat h, he feels some what feverish. He has generalized feeling of being unwell. He states that he is no t able to do the basics around his house; however, that has been an ongoing issue for quite some time . He has noticed increased cough and he is producing whitish sputum; however, the whitish sputum is a regular finding for him. The patient does have a recent sick contact. The patient was started on supplemental oxygen approximately 1 to 2 weeks ago. The patient does state that he is feeling better now than when he initially presented to the emergency room. PAST MEDICAL HISTORY: 1. Tobacco abuse. 2. Alcohol abuse. 3. COPD. PAST SURGICAL HISTORY: 1. Hernia repair. 2. 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 The patient was unclear exactly what was done. MEDICATIONS: 1. Breo Ellipta 2 puffs inhaled twice daily. 2. Spiriva Respimat 2 puffs inhaled daily. 3. Thiamine 100 mg p.o. daily. 4. Multivitamin 1 tab p.o. daily. 5. Folic acid 1 mg p.o. daily. 6. Albuterol 2 puffs inhaled q.4 hours p.r.n. shortness of breath. ALLERGIES: No known drug allergies. FAMILY HISTORY: Mom had a history of diabetes. She is diseased. Dad of what sounds to be MD. SOCIAL HISTORY: The patient has smoked upwards of 2 packs per day since the age of 12. He states that he is working on cutting down. He has been smoking most recently about a pack an d a half. He currently drinks alcohol on occasion. He previously drank 10 to 12 beers per day. 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 He lives alone. He is not . He has no children. At this time, he is unable to choose a healthcare proxy. REVIEW OF SYSTEMS: Complete 11-system review of systems is obtained, pertinent positives and negativ es are as per HPI and otherwise negative. PHYSICAL EXAMINATION GENERAL: The patient is a well-developed, middle aged male who is seen lying in bed, in no acute dis tress. VITAL SIGNS: Blood pressure 140/81, pulse 99, respirations 24, temp 98.5, O2 sat 90% on 5 L. HEENT: Pupils are equal and round. Extraocular muscles are intact. Oropharynx is clear. The patie nt does have cobblestoning of the posterior pharynx. He wears upper and lower dentures. There is no submandibular, cervical, or supraclavicular adenopathy. PULMONARY: Breath sounds are markedly diminished in all lung griffin. Air movement is tight. CARDIAC: Normal S1, S2. Heart rate is mildly tachycardic. It is regular. There is no lower extrem ity edema. ABDOMEN: Bowel sounds present. Abdomen is soft, nontender, nondistended. MUSCULOSKELETAL: There is no cyanosis or clubbing of the digits. There is full active range of ivctor hugo on of all 4 extremities. SKIN: Warm and dry. There are no rashes. NEUROLOGIC: Cranial nerves II through XII are grossly intact. Sensation is intact to light touch th roughout. Strength is 5/5 and symmetric to both upper and lower extremities bilaterally. PSYCH: The patient is alert. He is oriented x3. Affect appears appropriate. LABORATORY DATA: WBC 7.6, hemoglobin 17.7, hematocrit 54, platelets 270. Sodium 138, potassium 4.5 , chloride 104, CO2 of 30, BUN 7, creatinine 0.74, glucose 100. Lactic acid 1.0. Calcium 9.8, biliru bin 0.5. AST 18, ALT 21. Alkaline phosphatase 61. Troponin 0. Albumin 4.3. VBG 7.30/75/less than 38. Chest x-ray to my interpretation revealed hyperinflation without any evidence of infiltrate. EKG revealed sinus tachycardia without any acute ST-T wave abnormalities. ASSESSMENT AND PLAN: Mr. Mehta is a 62-year-old male who has a history of chronic obstructive pulmo nary disease and ongoing tobacco abuse, who presents to the emergency room with complaints of shortne ss of breath and is admitted for chronic obstructive pulmonary disease exacerbation. 1. Chronic obstructive pulmonary disease exacerbation. The patient at this point has very poor air movement. I believe that he will benefit from inpatient hospitalization for standing nebulizer treat ments every 4 hours as well as IV steroids and IV antibiotics. The patient will be started on Solu-M edrol 40 mg IV q.12 hours and azithromycin. There is no clear evidence of infection at this point; h owever, azithromycin will be utilized for his anti-inflammatory properties. The patient's respiratory status will be monitored closely and the O2 will be weaned down as his requirements decrease. We wi ll encourage smoking cessation. 2. Tobacco abuse. The patient will be provided nicotine replacement therapy with nicotine lozenge and nicotine patch. 3. DVT prophylaxis: According to the adult thrombosis prophylaxis risk factor assessment guide, the patient has a total risk factor score of 1 making him low risk. Heparin 5000 units subcutaneous q.1 2 hours will be utilized as DVT prophylaxis. 4. Code status is full. TIME SPENT: 55 minutes was spent admitting this patient. [id number]/CPS #: [id number]
[2018-11-05] MEDS: Albuterol 2.5 MG/3 ML NEB.SOL* (0.083%) INH SCH ×5 (07:07→23:07)
[2018-11-05] MEDS: Tiotropium CAP.INH* CAP.INH/18 MCG (USE ORDER SET !) INH SCH (07:21)
[2018-11-05] MEDS ORDERED: Nicotine Lozenge mini 4 MG LOZNG.MINI MT PRN (07:51)
[2018-11-05] MEDS ORDERED: Fluticasone-Salmeterol 500-50* DISKUS INH SCH (09:00)
[2018-11-05] MEDS ORDERED: Fluticasone/Vilanterol MDI(NF) 200/25 MDI INH SCH (09:00)
[2018-11-05] MEDS ORDERED: Spiriva Inhaler DEVICE* 1 EACH DEVICE INH ONE (09:00)
[2018-11-05] MEDS: Multivitamins/Minerals TAB PO SCH (09:13)
[2018-11-05] MEDS: Thiamine TAB* 100 MG TAB PO SCH (09:13)
[2018-11-05] MEDS: Folic Acid TAB* 1 MG PO SCH (09:13)
[2018-11-05] MEDS: Azithromycin IV(*) 250 MG in NS 0.9% 250 ML* 250 ML IVPB SCH (09:13)
[2018-11-05] MEDS: Nicotine PATCH 21 MG/24 HR* PATCH TRANSDERM SCH (09:14)
[2018-11-05] MEDS: Heparin VIAL(*) 5000 UNITS/ML VIAL (FIVE THOUSAND) SUBCUT SCH ×2 (09:16→19:32)
--- NOTE | 2018-11-05 13:58 | PN ---
Subjective Date of Service: 11/05/18 Interval History: Reports improvement in breathing Objective Active Medications: Albuterol (Ventolin 2.5 Mg/3 Ml Neb.Concepcion*) 2.5 mg INH Q4H [facility] Last Admin: 11/05/18 10:42 Dose: 2.5 mg Fluticasone/Vilanterol (Breo Ellipta Mdi 200/25(Nf)) 1 puff INH BID [facility] Last Admin: 11/05/18 10:33 Dose: Not Given Folic Acid (Folvite Tab*) 1 mg PO DAILY [facility] Last Admin: 11/05/18 09:13 Dose: 1 mg Heparin Sodium (Porcine) (Heparin Vial(*)) 5,000 units SUBCUT Q12HR [facility] Last Admin: 11/05/18 09:16 Dose: 5,000 units Azithromycin 250 mg/ Sodium (Chloride) 250 mls @ 250 mls/hr IVPB Q24H [facility] Last Admin: 11/05/18 09:13 Dose: 250 mls/hr Methylprednisolone Sodium Succinate (Solu-Medrol 40 Mg) 40 mg IV Q12H [facility] Last Admin: 11/05/18 02:30 Dose: 40 mg Multivitamins/Minerals (Theragran/Minerals Tab*) 1 tab PO DAILY [facility] Last Admin: 11/05/18 09:13 Dose: 1 tab Nicotine (Nicotine Patch 21 Mg/24 Hr*) 1 patch TRANSDERM DAILY@0800 [facility] Last Admin: 11/05/18 09:14 Dose: 1 patch Nicotine Polacrilex (Nicotine Lozenge Mini) 4 mg MT Q2H PRN PRN Reason: CRAVINGS Pharmacy Profile Note (Nicotine Patch Removal Note*) 1 note FOLLOW UP 2100 [facility] Thiamine HCl (Vitamin B-1 Tab*) 100 mg PO DAILY [facility] Last Admin: 11/05/18 09:13 Dose: 100 mg Tiotropium [place] (Spiriva Cap.Inh*) 1 cap INH DAILY [facility] Last Admin: 11/05/18 07:21 Dose: 1 cap Vital Signs - 8 hr 11/05/18 11/05/18 11/05/18 07:08 07:22 07:37 Temperature 97.9 F Pulse Rate 81 81 87 Respiratory 16 16 20 Rate Blood Pressure 144/69 (mmHg) O2 Sat by Pulse 95 95 95 Oximetry 11/05/18 11/05/18 11/05/18 09:35 10:43 11:35 Temperature 98.2 F Pulse Rate 95 99 Respiratory 20 18 20 Rate Blood Pressure 123/45 (mmHg) O2 Sat by Pulse 92 93 Oximetry Oxygen Devices in Use Now: Nasal Cannula Eyes: No Scleral Icterus Neck: NL Appearance and Movements; NL JVP Respiratory: Symmetrical Chest Expansion and Respiratory Effort, - - Dec bilateral air entry Cardiovascular: NL Sounds; No Murmurs; No JVD, RRR Abdominal: NL Sounds; No Tenderness; No Distention Extremities: No Edema Neurological: Alert and Oriented x 3 Result Diagrams: 11/04/18 21:23 11/04/18 21:23 Assess/Plan/Problems-Billing Assessment: - Patient Problems (1) Acute respiratory failure with hypoxia Current Visit: No Status: Acute Code(s): J96.01 - ACUTE RESPIRATORY FAILURE WITH HYPOXIA SNOMED Code(s): 68274465 Comment: - Secondary to COPD exacerbation -On 5 l of oxygen -Titrating down (2) COPD exacerbation Current Visit: No Status: Acute Code(s): J44.1 - CHRONIC OBSTRUCTIVE PULMONARY DISEASE W (ACUTE) EXACERBATION SNOMED Code(s): 300852352 Comment: - Secondary to bronchitis - CXR shows obstructive lung disease, but no pneumonia - Continue solumedrol, azithromycin, nebs (3) Tobacco dependence Current Visit: No Status: Acute Code(s): F17.200 - NICOTINE DEPENDENCE, UNSPECIFIED, UNCOMPLICATED SNOMED Code(s): 83575107 Comment: - Encourage cessation - Counselled
[2018-11-05] MEDS ORDERED: Nicotine Patch Removal NOTE FOLLOW UP SCH (21:00)
[2018-11-06] MEDS: methylPREDNISolone SOD 40 MG* 1 ML VIAL IV SCH ×2 (01:01→12:25)
[2018-11-06] MEDS ORDERED: Albuterol 2.5 MG/3 ML NEB.SOL* (0.083%) INH PRN (02:26)
[2018-11-06] MEDS: Nicotine PATCH 21 MG/24 HR* PATCH TRANSDERM SCH (07:14)
[2018-11-06] MEDS: Folic Acid TAB* 1 MG PO SCH (07:15)
[2018-11-06] MEDS: Thiamine TAB* 100 MG TAB PO SCH (07:15)
[2018-11-06] MEDS: Azithromycin IV(*) 250 MG in NS 0.9% 250 ML* 250 ML IVPB SCH (07:15)
[2018-11-06] MEDS: Multivitamins/Minerals TAB PO SCH (07:15)
[2018-11-06] MEDS: Heparin VIAL(*) 5000 UNITS/ML VIAL (FIVE THOUSAND) SUBCUT SCH (07:16)
[2018-11-06 07:56] LABS: ABS Basophils 0.1 10^3/ul (0-0.2); ABS Lymphocytes 0.6 10^3/ul (1.0-4.8); ABS Monocytes 0.5 10^3/ul (0-0.8); ABS Neutrophils 14.1 10^3/ul (1.5-7.7); Hematocrit 47 % (42-52); Hemoglobin 15.3 g/dL (14.0-18.0); Mean Corpuscular HGB Conc 33 g/dL (31-36); Mean Corpuscular Hemoglobin 31 pg (27-31); Mean Corpuscular Volume 94 fL (80-94); Mean Platelet Volume 8.3 fL (7.4-10.4); Platelet Count 257 10^3/uL (150-450); Red Blood Count 4.99 10^6 /uL (4.18-5.48); Red Cell Distribution Width 15 % (10.5-15); White Blood Count 15.2 10^3/uL (3.5-10.8)
[2018-11-06 08:09] LABS: BUN/Creatinine Ratio 18.2 (8-20); Calcium 9.5 mg/dL (8.6-10.3); EGFR African American 124.7 (>60); EGFR Non-African American 103.1 (>60); Potassium 4.7 mmol/L (3.5-5.0)
[2018-11-06] MEDS ORDERED: PTO: Fluticasone/Vilanterol MDI(NF) 200/25 MDI INH SCH (09:00)
[2018-11-06] MEDS: Tiotropium CAP.INH* CAP.INH/18 MCG (USE ORDER SET !) INH SCH (12:26)
[2018-11-06 12:36] VITALS: BP 120/70
--- NOTE | 2018-11-06 12:59 | DS ---
DISCHARGE SUMMARY: DATE OF ADMISSION: 11/05/18 DATE OF DISCHARGE: 11/06/18 Please note the patient was discharged midnight of 11/05/18. PRIMARY DIAGNOSES: 1. Acute respiratory failure with hypoxia. 2. Chronic obstructive pulmonary disease exacerbation. HOSPITAL COURSE: A 62-year-old male with history of tobacco abuse and COPD, came in to the ER with c omplaints of shortness of breath. The patient at baseline is on 2 L of oxygen. He had noted increas ed cough with sputum production and dyspnea. The patient's chest x-ray showed hyperinflation with no infiltrate suggestive of pneumonia. The patient initially needed 5 L of oxygen and was noted to be i n respiratory failure with hypoxia. The patient was started on IV steroids and IV azithromycin for b ronchitis and its anti-inflammatory properties. The patient's condition significantly improved on tr eatment and at this time the patient wishes to go home on oral medications. The patient will be disc harged on Medrol-Dosepak and Z-Leland to complete further courses on outpatient. The patient to continu e his home inhalers. Vitals and lab noted to be stable at time of discharge. PHYSICAL EXAMINATION: Vitals: Temperature 98.2, pulse 81, respiratory rate 20, oxygen saturation 96 % on 2 L, blood pressure 119/71. HEENT: NCAT. Heart: S1, S2 present. Regular at the time of exam . Lungs: Decreased breath sounds bilaterally. No wheezes or rhonchi. Abdomen: Soft. No rebound. No guarding, nontender. Extremities: Noted to have no edema. Neuro: Alert and oriented. The pa tient back to his baseline 2 L of oxygen and has been ambulating without getting short of breath. MEDICATION LIST AT THE TIME OF DISCHARGE: 1. Fluticasone/vilanterol/Ellipta 1 inhalation daily. 2. Spiriva 2 puffs inhalation daily. 3. Thiamine 100 mg p.o. daily. 4. Multivitamin 1 tab p.o. daily. 5. Folic acid 1 mg p.o. daily. 6. Albuterol inhaler 2 puffs inhalation q.4 hours p.r.n. for shortness of breath. 7. Medrol-Dosepak to be taken per instructions on the pack. 8. Z-Leland/Zithromax to be taken per instructions on the pack. DISCHARGE CONDITION: Stable. DISPOSITION: Home. INSTRUCTIONS: The patient to follow up with his PCP in a week. TOTAL TIME SPENT ON DISCHARGE: Equal to 40 minutes. [id number]/[facility] #: [id number]
== END 2018-11-06 13:30 | disposition home or self-care (01) | DRG 189 ==
LOC: ED 20:29 → MED 11-05 00:26
PROVIDERS: ADMIT Hospitalist; ATTEND Internal Medicine
DX: J96.01 Acute respiratory failure with hypoxia (principal); J44.1 Chronic obstructive pulmonary disease with (acute) exacerbation; F17.210 Nicotine dependence, cigarettes, uncomplicated; F10.10 Alcohol abuse, uncomplicated; Z99.81 Dependence on supplemental oxygen; Z79.51 Long term (current) use of inhaled steroids; Z79.899 Other long term (current) drug therapy; Z83.3 Family history of diabetes mellitus; Z82.49 Family history of ischemic heart disease and other diseases of the circulatory system; J40 Bronchitis, not specified as acute or chronic
CPT/HCPCS: 36415; 71046; 80048; 80053; 82803; 83605; 84484; 85025; 87040; 93005; 94640; 99285; A9270-GY; J0456; J0696; J1644; J2920; J2930; J7611

== ENCOUNTER 2018-11-21 18:26 | Emergency (ER) | payer MEDICARE, MEDICAID ==
[2018-11-21 18:31] VITALS: BP 148/78
[2018-11-21] MEDS ORDERED: methylPREDNISolone 125 MG* 2 ML VIAL IV ONE (19:57)
--- NOTE | 2018-11-21 20:02 | ED ---
HPI Febrile Illness - HPI Summary HPI Summary: This pt is a 63 y/o male presenting to [facility] c/o fever, cough, and SOB x3 days. Pt describes productive cough with white sputum. Pt presents to the ED with temperature of 99.7 F. He additionally notes myalgia and fatigue. Denies diarrhea, nausea, vomiting, chest pain. He states he was discharged from the hospital about 1-2 weeks ago after he was admitted for COPD. Pt uses 2L of O2 NC at home. He still smokes, but notes "not as much as before. " - History of Current Complaint Chief Complaint: EDFever Time Seen by Provider: 11/21/18 19:54 Hx Obtained From: Patient Onset/Duration: Started Days Ago, Still Present Timing: Lasting Days Current Severity: Moderate Aggravating Factors: Nothing Alleviating Factors: Nothing Associated Signs and Symptoms: Cough, Myalgia, SOB, Other: - POS: fatigue. NEGATIVE: diarrhea, nausea, vomiting, chest pain. - Additional Pertinent History Primary Care Physician: [id number] - Allergy/Home Medications Allergies/Adverse Reactions: Allergies Allergy/AdvReac Type Severity Reaction Status Date / Time No Known Allergies Allergy Verified 09/09/18 19:02 PMH/Surg Hx/FS Hx/Imm Hx Endocrine/Hematology History: Denies: Hx Diabetes, Hx Thyroid Disease Cardiovascular History: Denies: Hx Hypertension Respiratory History: Reports: Hx Asthma, Hx Chronic Obstructive Pulmonary Disease (COPD) GI History: Denies: Hx Ulcer Sensory History: Reports: Hx Cataracts - RIGHT EYE, Hx Contacts or Glasses - GLASSES Denies: Hx Hearing Aid Opthamlomology History: Reports: Hx Cataracts - RIGHT EYE, Hx Contacts or Glasses - GLASSES Neurological History: Reports: Other Neuro Impairments/Disorders - EPISODES OF PASSING OUT- "BODY STARTS JERKING"LAST TIME 1 MONTH AGO - Surgical History Surgery Procedure, Year, and Place: Tonsillectomy. Hernia Repair/Tumor Removal age 7 Hx Anesthesia Reactions: No - Immunization History Date of Tetanus Vaccine: utd Date of Influenza Vaccine: none Infectious Disease History: No Infectious Disease History: Reports: History Other Infectious Disease - SPINAL MENINGITIS, W[place] MTN FEVER Denies: Hx Clostridium Difficile, Hx Hepatitis, Hx Human Immunodeficiency Virus (HIV), Hx of Known/Suspected MRSA, Hx Shingles, Hx Tuberculosis, Traveled Outside the [place] in Last 30 Days - Family History Known Family History: Negative: Cardiac Disease - Social History Alcohol Use: Rare Alcohol Amount: pt states none for one month now Hx Substance Use: No Substance Use Type: Reports: None Substance Use Comment - Amount & Last Used: last etoh 2 days ago Hx Tobacco Use: Yes Smoking Status (MU): Heavy Every Day Tobacco Smoker Type: Cigarettes Amount Used/How Often: 1 1/2 PPD Length of Time of Smoking/Using Tobacco: 2 ppd Have You Smoked in the Last Year: Yes Review of Systems Positive: Fever, Fatigue Negative: Chest Pain Positive: Shortness Of Breath, Cough Negative: Vomiting, Diarrhea, Nausea Positive: Myalgia All Other Systems Reviewed And Are Negative: Yes Physical Exam - Summary Physical Exam Summary: VITAL SIGNS: Reviewed. GENERAL: Patient is a well-developed and nourished male who is lying comfortable in the stretcher. Patient is not in any acute respiratory distress. HEAD AND FACE: Normocephalic EYES: PERRLA, EOMI x 2. EARS: Hearing grossly intact. MOUTH: Oropharynx within normal limits. NECK: Supple, trachea is midline, no adenopathy, no JVD, no carotid bruit. CHEST: Symmetric, no tenderness at palpation LUNGS: Crackles. Decreased breath sounds. Wheezing. CVS: Regular rate and rhythm, S1 and S2 present, no murmurs or gallops appreciated. ABDOMEN: Soft, non-tender. Bowel sounds are normal. No abdominal abnormal pulsations. EXTREMITIES: Full ROM in all major joints, no edema, no cyanosis or clubbing. NEURO: Alert and oriented x 3. No acute neurological deficits. Speech is normal and follows commands. SKIN: Dry and warm Triage Information Reviewed: Yes Vital Signs On Initial Exam: Initial Vitals Temp Pulse Resp BP Pulse Ox 99.7 F 91 18 148/78 91 11/21/18 18:27 11/21/18 18:27 11/21/18 18:27 11/21/18 18:27 11/21/18 18:27 Vital Signs Reviewed: Yes Diagnostics - Vital Signs Vital Signs Temp Pulse Resp BP Pulse Ox 11/21/18 18:27 99.7 F 91 18 148/78 91 - Laboratory Result Diagrams: 11/21/18 20:53 11/21/18 20:53 Lab Statement: Any lab studies that have been ordered have been reviewed, and results considered in the medical decision making process. - Radiology Chest XR Radiology Interpretation Completed By: ED Physician Summary of Radiographic Findings: Questionable infiltrate. - EKG 20:20 Cardiac Rate: NL - at 91 bpm EKG Rhythm: Sinus Rhythm Ectopy: PVCs EKG Comparison: No Significant Change - Similar to prior EKG on 11/04/18. Summary of EKG Findings: No ST elevations. Re-Evaluation - Re-Evaluation First Eval Re-Evaluation Time: 21:42 Comment: Reviewed results with the pt. He does not want to be admitted. Pt would like to go home and will sign out AMA. Course/Dx - Course Assessment/Plan: This pt is a 63 y/o male presenting to [facility] c/o fever, cough, and SOB x3 days. Pt describes productive cough with white sputum. Pt presents to the ED with temperature of 99.7 F. He additionally notes myalgia and fatigue. Denies diarrhea, nausea, vomiting, chest pain. He states he was discharged from the hospital about 1-2 weeks ago after he was admitted for COPD. Pt uses 2L of O2 NC at home. He still smokes, but notes "not as much as before.". Blood tests without any significant abnormality except for WBCs of 15.8, absolute neutrophils of 10.2, chloride 100, CRP is 144. ABG shows a pH of 7.46, PCO2 is 40, PO2 61, O2 sat is 94.7. In the ED course the patient was given DuoNebs, Solu-Medrol. Chest x-ray shows a questionable infiltrate in the right lower lung therefore the patient was given Rocephin. I advised admission for this patient however he refuses. He signed AGAINST MEDICAL ADVICE. I extensively discussed with the patient the benefits and risk of leaving AMA. I also discussed the alternatives to leaving AMA, however, the patient still insist to leave the hospital AMA. The patient is clinically sober , free from distracting injury, appears to have intact insight and judgment and reason and in my opinion has the capacity to make decisions. Patient has full capacity and is cognitively intact. The patient presents with fever, productive cough and SOB, I have explained that I am concerned with Hypoxia, COPD exacerbation and Pneumonia and may represent sepsis and can escalate to . The patient verbalizes the understanding of my concerns. I have also explained the results of the labs and even though they are abnormal. The primary nurse and the charge nurse also strongly recommended that the patient should not leave AMA. Patient understands the risk of leaving AMA, which includes but is not restricted to . Patient signed the AMA form. Patient was also advised to return to ED if he changes his mind or if the symptoms worsen or other symptoms appear. Patient understands and agrees. Again, I discussed all the findings and test results with the patient. Patient was instructed to return to the emergency room immediately if any of the symptoms return or worsens. Plan of care was discussed with the patient and understands and agrees. All questions were answered at patient satisfaction. There were no further complaints or concerns. Patient signed AMA and he was discharged AMA. - Diagnoses Provider Diagnoses: COPD exacerbation, Pneumonia, COPD (chronic obstructive pulmonary disease) Discharge - Sign-Out/Discharge Documenting (check all that apply): Patient Departure - Against Medical Advice Patient Received Moderate/Deep Sedation with Procedure: No - Discharge Plan Condition: Stable Disposition: AGAINST MEDICAL ADVICE Prescriptions: Azithromycin TAB* [Zithromax TAB (Z-BHUPENDRA) 250 mg #6 tabs] 2 tab PO .TODAY, THEN 1 DAILY #1 bhupendra Patient Education Materials: COPD (Chronic Obstructive Pulmonary Disease) (ED) , Pneumonia (ED) Referrals: Zoya Broderick MD [Primary Care Provider] - Additional Instructions: PLEASE FOLLOW UP WITH YOUR PRIMARY CARE PROVIDER IN 2-3 DAYS. RETURN TO THE ED FOR ANY WORSENING OR NEW SYMPTOMS. - Billing Disposition and Condition Condition: STABLE Disposition: Against Medical Advice - Attestation Statements Document Initiated by Terence: Yes Documenting Scribe: Elis Vanegas Provider For Whom Terence is Documenting (Include Credential): John Wilkins MD Scribe Attestation: Elis Chu, scribed for John Wilkins MD on 11/22/18 at 1031. Scribe Documentation Reviewed: Yes Provider Attestation: The documentation as recorded by the Elis silver accurately reflects the service I personally performed and the decisions made by , John Wilkins MD Status of Scribe Document: Viewed
[2018-11-21] MEDS ORDERED: Albuterol 2.5 MG/3 ML NEB.SOL* (0.083%) INH ONE (20:25)
[2018-11-21] MEDS: Albuterol/Ipratropium NEB.SOL* Albuterol 2.5 MG/Ipratropium 0.5 MG 3 ML INH SCH ×3 (20:32→20:55)
[2018-11-21 21:09] LABS: Hematocrit 50 % (42-52); Hemoglobin 16.6 g/dL (14.0-18.0); Mean Corpuscular HGB Conc 33 g/dL (31-36); Mean Corpuscular Hemoglobin 31 pg (27-31); Mean Corpuscular Volume 93 fL (80-94); Mean Platelet Volume 7.9 fL (7.4-10.4); Platelet Count 283 10^3/uL (150-450); Red Blood Count 5.37 10^6 /uL (4.18-5.48); Red Cell Distribution Width 14 % (10-15); White Blood Count 15.8 10^3/uL (3.5-10.8)
[2018-11-21 21:24] LABS: Albumin 4.1 g/dL (3.2-5.2); Albumin/Globulin Ratio 1.2 (1-3); C Reactive Protein 144.43 mg/L (<8.01); Calcium 9.5 mg/dL (8.6-10.3); EGFR African American 128.1 (>60); EGFR Non-African American 105.9 (>60); Globulin 3.3 g/dL (2-4); Potassium 3.9 mmol/L (3.5-5.0); Total Bilirubin 0.8 mg/dL (0.2-1.0); Total Protein 7.4 g/dL (6.4-8.9)
[2018-11-21 21:33] LABS: ABS Basophils 0.2 10^3/ul (0-0.2); ABS Eosinophils 0.2 10^3/ul (0-0.6); ABS Lymphocytes 3.5 10^3/ul (1.0-4.8); ABS Monocytes 1.8 10^3/ul (0-0.8); ABS Neutrophils 10.2 10^3/ul (1.5-7.7); Lymphocyte % 21.9 %; Nucleated Red Blood Cells % 0.1
[2018-11-21] MEDS ORDERED: cefTRIAXone(*) 1 GM in NS 0.9% 50 ML* 50 ML IVPB ONE (21:38)
== END 2018-11-21 22:12 | disposition left against medical advice (07) ==
LOC: ED 18:26
DX: J44.1 Chronic obstructive pulmonary disease with (acute) exacerbation (principal); Z99.81 Dependence on supplemental oxygen; J18.9 Pneumonia, unspecified organism; F17.210 Nicotine dependence, cigarettes, uncomplicated
CPT/HCPCS: 36415; 71046; 80053; 82550; 82803; 83605; 83880; 84484; 85025; 86140; 87040; 93005; 96365; 96375; 99284; A9270-GY; J0696; J2930

== ENCOUNTER 2019-09-15 13:18 | Emergency (ER) | payer MEDICARE, MEDICAID, OTHER ==
--- NOTE | 2019-09-15 13:31 | ED ---
Shortness of Breath - HPI Summary HPI Summary: 63 y/o male w hx COPD on 2L O2 at home p/w SOB. SOB started 1 week ago. Reports cough w phlegm, no fevers. Still smoking about 2 PPD (cutting down). At home he has been trying his nebulizer and both his inhalers which have helped a little. Last COPD exacerbation July. Admitted to hospital twice, hx one intubation many years ago. Reports chest pain/tightness currently but goes away. No exertional CP. No hx DVT/PE. Fam hx: HTN Surgeries: tonsils, hernia - History of Current Complaint Chief Complaint: EDShortnessOfBreath Time Seen by Provider: 09/15/19 13:29 Hx Obtained From: Patient Onset/Duration: Lasting Weeks - 1, Still Present Timing: Constant Current Severity: Mild - 2 Aggravating Factors: Nothing Alleviating Factors: Other - nebulizer and inhalers Associated Signs & Symptoms: Negative - fever, Cough (Productive), Chest Pain Unrelated to Cough - Allergy/Home Medications Allergies/Adverse Reactions: Allergies Allergy/AdvReac Type Severity Reaction Status Date / Time No Known Allergies Allergy Verified 09/09/18 19:02 Home Medications: Home Medications Albuterol HFA INHALER* [Ventolin HFA Inhaler*] 2 puff INH Q4H PRN #1 mdi [Rx Confirmed 09/15/19] Albuterol 2.5MG/3ML (0.083%)* [Ventolin 2.5 MG/3 ML NEB.NANCY*] 2.5 mg INH Q4H PRN 09/15/19 [History Confirmed 09/15/19] Amoxicillin/Clavulanate TAB* [Augmentin TAB 875*] 875 mg PO BID 7 Days #14 tab 09/15/19 [Rx] DOXYcycline CAP(*) [DOXYcycline 100MG CAP(*)] 100 mg PO BID 09/15/19 [History Confirmed 09/15/19] Fluticasone/Umeclidin/Vilanter [Trelegy Ellipta 100-62.5-25] 1 puff INH DAILY [History Confirmed 09/15/19] Ipratropium Br (Nf)0.03% Nasal [Ipratropium Sidon] 2 spray BOTH NARES BID 08/31 [History Confirmed 09/15/19] guaiFENesin [Mucinex] 600 mg PO Q12H 09/15/19 [History Confirmed 09/15/19] predniSONE 50 mg TAB [Deltasone 50 mg TAB] 50 mg PO DAILY 4 Days #4 tab [Rx] predniSONE [Prednisone 20 MG TAB] 40 mg PO DAILY 09/15/19 [History Confirmed 08/31] PMH/Surg Hx/FS Hx/Imm Hx Endocrine/Hematology History: Denies: Hx Diabetes, Hx Thyroid Disease Cardiovascular History: Denies: Hx Hypertension Respiratory History: Reports: Hx Asthma, Hx Chronic Obstructive Pulmonary Disease (COPD) Sensory History: Reports: Hx Cataracts - RIGHT EYE, Hx Contacts or Glasses - GLASSES Opthamlomology History: Reports: Hx Cataracts - RIGHT EYE, Hx Contacts or Glasses - GLASSES Neurological History: Reports: Other Neuro Impairments/Disorders - EPISODES OF PASSING OUT- "BODY STARTS JERKING"LAST TIME 1 MONTH AGO - Surgical History Surgery Procedure, Year, and Place: Tonsillectomy. Hernia Repair/Tumor Removal age 7 Hx Anesthesia Reactions: No - Immunization History Date of Tetanus Vaccine: utd Date of Influenza Vaccine: none Infectious Disease History: No Infectious Disease History: Reports: History Other Infectious Disease - SPINAL MENINGITIS, [place] MTN FEVER Denies: Hx Clostridium Difficile, Hx Hepatitis, Hx Human Immunodeficiency Virus (HIV), Hx of Known/Suspected MRSA, Hx Shingles, Hx Tuberculosis, Traveled Outside the [place] in Last 30 Days - Family History Known Family History: Negative: Cardiac Disease - Social History Alcohol Use: Rare Hx Substance Use: No Substance Use Type: Reports: None Substance Use Comment - Amount & Last Used: last etoh 2 days ago Hx Tobacco Use: Yes Smoking Status (MU): Heavy Every Day Tobacco Smoker Type: Cigarettes Amount Used/How Often: 1 1/2 PPD Have You Smoked in the Last Year: Yes Review of Systems Negative: Fever Positive: Chest Pain - tightness Positive: Shortness Of Breath, Cough - with phlegm All Other Systems Reviewed And Are Negative: Yes Physical Exam - Summary Physical Exam Summary: Constitutional: Well-developed, Well-nourished, Alert. (-) Distressed Skin: Warm, Dry HENT: Normocephalic; Atraumatic Eyes: Conjunctiva normal Neck: Musculoskeletal ROM normal neck. (-) JVD, (-) Stridor, (-) Nuchal rigidity Cardio: Rhythm regular, rate normal, Heart sounds normal; Intact distal pulses; Radial pulses are 2+ and symmetric. (-) Murmur Pulmonary/Chest wall: Increased work with breathin. (-) Respiratory distress, diffuse wheezing bilaterally, (-) Rales Abd: Soft, (-) tenderness, (-) Distension, (-) Guarding, (-) Rebound Musculoskeletal: (-) Edema Lymph: (-) Cervical adenopathy Neuro: Alert, Oriented x3 Psych: Mood and affect Normal Triage Information Reviewed: Yes Vital Signs On Initial Exam: Initial Vitals Temp Pulse Resp BP Pulse Ox 97.7 F 98 22 160/98 87 09/15/19 13:19 09/15/19 13:19 09/15/19 13:19 09/15/19 13:19 09/15/19 13:19 Vital Signs Reviewed: Yes Procedures - Sedation Patient Received Moderate/Deep Sedation with Procedure: No Diagnostics - Vital Signs Vital Signs Temp Pulse Resp BP Pulse Ox 09/15/19 13:19 97.7 F 98 22 160/98 87 - Laboratory Result Diagrams: 09/15/19 14:18 09/15/19 14:18 Lab Statement: Any lab studies that have been ordered have been reviewed, and results considered in the medical decision making process. - Radiology CXR Radiology Interpretation Completed By: Radiologist - IMPRESSION: NO ACTIVE CARDIOPULMONARY DISEASE. ED physician has reviewed this imaging report. - EKG 1438 Summary of EKG Findings: An EKG at 1438 reveals normal sinus rhythm 90 BPM. Incomplete RBBB. T wave inversions in leads V1, V2, V3. When compared to 2018, no significant change. No STEMI. No acute changes. ED physician has reviewed and interpreted this EKG. Re-Evaluation - Re-Evaluation First Eval Re-Evaluation Time: 14:45 Change: Improved - still having some SOB and wheezing will try second duoneb Course/Dx - Course Course Of Treatment: 63 y/o male w hx COPD on 2 L O2 at home, tobacco use p/w SOB. Shortness of breath ddx: Most likely COPD - given solumedrol, duoneb, augmentin. Also consider: PNA - no sputum production, no fevers or chills. No leukocytosis. CXR w/o infiltrate. Low suspicion. PTX - breath sounds equal, no risk factors for PTX, CXR w/o e/o PTX. ACS - no EKG changes, initial trop not elevated. Low suspicion. CHF - no h/o CHF, no MCLEOD or orthopnea, no BLE edema, CXR w/o pulmonary edema. PE - no risk factors for PE, no unilateral leg swelling. Patient feeling better after 2 nebs. Given augmentin for COPD exacerbation on chronic O2. Given prednisone. D/w patient about obs vs DC and he does not wish to stay. 92% on 2L O2. - Diagnoses Provider Diagnoses: COPD exacerbation Discharge ED - Sign-Out/Discharge Documenting (check all that apply): Patient Departure - Discharge Plan Condition: Stable Disposition: HOME Prescriptions: Amoxicillin/Clavulanate TAB* [Augmentin TAB 875*] 875 mg PO BID 7 Days #14 tab predniSONE 50 mg TAB [Deltasone 50 mg TAB] 50 mg PO DAILY 4 Days #4 tab Patient Education Materials: COPD (Chronic Obstructive Pulmonary Disease) (ED) Forms: COVID-19 Tested & Isolation Referrals: Zoya Broderick MD [Primary Care Provider] - Additional Instructions: You were seen in the emergency department for cough and shortness of breath. Please take prednisone once a day for 5 days (you got your first dose here), please of Augmentin twice a day for 7 days. Your COVID test is pending. Please isolate yourself until you are feeling better. If any studies were not completed at the time of discharge you will be called with the relevant results. Please follow up with your primary care doctor in next 2-3 days and return to emergency department for trouble breathing, chest pain, worsening or concerning symptoms. It was a pleasure taking care of you today. - Billing Disposition and Condition Condition: STABLE Disposition: Home - Attestation Statements Document Initiated by Israelibe: Yes Documenting Scribe: Irene Bosch Provider For Whom Terence is Documenting (Include Credential): Kay Garcia MD Scribe Attestation: Irene Chu, scribed for Kay Garcia MD on 09/15/19 at 1751. Scribe Documentation Reviewed: Yes Provider Attestation: The documentation as recorded by the scribIrene padilla accurately reflects the service I personally performed and the decisions made by me, Kay Garcia MD Status of Scribe Document: Viewed
[2019-09-15] MEDS ORDERED: methylPREDNISolone 125 MG* 2 ML VIAL IV ONE (13:37)
[2019-09-15] MEDS ORDERED: Albuterol/Ipratropium NEB.SOL* Albuterol 2.5 MG/Ipratropium 0.5 MG 3 ML INH ONE ×2 (13:37→14:50)
[2019-09-15 14:45] LABS: ABS Basophils 0.1 10^3/ul (0-0.2); ABS Eosinophils 0.9 10^3/ul (0-0.6); ABS Lymphocytes 1.9 10^3/ul (1.0-4.8); ABS Neutrophils 5.3 10^3/ul (1.5-7.7); Eosinophil % 10.1 %; Hematocrit 50 % (42-52); Hemoglobin 17.1 g/dL (14.0-18.0); Lymphocyte % 20.8 %; Mean Corpuscular HGB Conc 34 g/dL (31-36); Mean Corpuscular Hemoglobin 31 pg (27-31); Mean Corpuscular Volume 92 fL (80-94); Platelet Count 318 10^3/uL (150-450); Red Blood Count 5.49 10^6 /uL (4.18-5.48); Red Cell Distribution Width 14 % (10-15); White Blood Count 9.2 10^3/uL (3.5-10.8)
[2019-09-15] MEDS ORDERED: Amoxicillin/Clavulanate TAB* 875 MG PO ONE (14:50)
[2019-09-15 15:04] LABS: Albumin/Globulin Ratio 1.3 (1-3); BUN/Creatinine Ratio 14.9 (8-20); Calcium 9.6 mg/dL (8.6-10.3); EGFR African American 130.1 (>60); EGFR Non-African American 107.5 (>60); Globulin 3.2 g/dL (2-4); Potassium 4.4 mmol/L (3.5-5.0); Total Bilirubin 0.6 mg/dL (0.2-1.0); Total Protein 7.2 g/dL (6.4-8.9)
[2019-09-15 15:05] LABS: Troponin I 0.01 ng/mL (<0.03)
--- OUTSIDE RECORDS SUMMARY | 2019-09-15 15:11 | XMS REPORT | Summary of Care ---
:1955 Author Organization [facility] Address [address] [facility] [place] [address] Care Team Providers Name Role Phone Zoya Broderick MD Primary Care Provider Francisco Aguiar Unavailable Reason for Visit Reason Comments COPD Approx. 7-10 day ago his O2 was in the 40s, today it is between 86-91 it has been fluctuating since then. Encounter Details Date Type Department Care Team Description 07/31/2019 Office Visit [place] [facility] Raghu Buckner, COPD with acute Medicine PA exacerbation ([facility]) [address] (Primary Dx) [place] [address] [place] [address] [phone] Allergies No Known Allergiesdocumented as of this encounter (statuses as of 07/31/2019) Medications Medication Sig Dispensed Refills Start Date End Date Status ipratropium [place] 2 Sprays in 1 [place] 5 12/27/2017 Active (ATROVENT) 0.03 % nose TWICE DAILY. Nasal Solution albuterol 3 mL by 125 Vial 3 06/01/2019 Active (PROVENTIL, Inhalation-SVN VENTOLIN) (2.5 route EVERY FOUR MG/3ML) 0.083% HOURS NEEDED Inhalation Nebu Soln (bad wheezing). fluticasone-umeclind Take 1 INHL by 1 Each 5 06/01/2019 Active inium-vilanterol inhalation DAILY. (TRELEGY ELLIPTA) 100-62.5-25 MCG/INH Inhalation AEROSOL POWDER, BREATH ACTIVATED albuterol HFA Take 2 Puffs by 18 g 5 06/05/2019 06/05/2020 Active (VENTOLIN HFA) 108 inhalation EVERY (90 Base) MCG/ACT FOUR HOURS Inhalation Aero Soln NEEDED (Asthma). guaifenesin Take 1 Tab by 28 Tab 0 07/31/2019 Active (MUCINEX) 600 MG mouth EVERY TWELVE Oral TABLET SR 12 HOURS. HRIndications: COPD with acute exacerbation (HCC) predniSONE Take 2 Tabs by 10 Tab 0 07/31/2019 Active (DELTASONE) 20 MG mouth DAILY. Oral TabIndications: COPD with acute exacerbation (HCC) doxycycline Take 1 Tab by 20 Tab 0 07/31/2019 Active (VIBRAMYCIN) 100 MG mouth TWICE DAILY. Oral TabIndications: COPD with acute exacerbation (HCC) documented as of this encounter (statuses as of 07/31/2019) Active Problems Problem Noted Date Combined forms of age-related cataract of right eye 06/25/2016 Overview: Right eye- Dr Hui 05/25/16 Age-related nuclear cataract, left 06/25/2016 Overview: Dr Hui 05/25/16 Asthma-COPD overlap syndrome 02/27/2016 Overview: Luis Fernando/Michael--Oxygne 2 lpm with activity and at HS Solitary pulmonary nodule 02/27/2016 Tobacco use disorder 02/27/2016 Oxygen dependent Overview: 2 L NC documented as of this encounter (statuses as of 07/31/2019) Immunizations Name Administration Dates Next Due Pneumococcal Conjugate Vaccine 03/29/2012 documented as of this encounter Social History Tobacco Use Types Packs/Day Years Used Date Current Every Day Smoker Cigarettes 2 48 Smokeless Tobacco: Never Used Comments: currently 1 ppd 06/01/19 Alcohol Use Drinks/Week oz/Week Comments Yes 6 Cans of beer 6.0 Social Isolation Answer Date Recorded In a typical week, how many times do you talk on the Twice a week 10/26/2018 phone with family, friends, or neighbors? How often do you get together with friends or relatives? Twice a week 2018 How often do you attend mormon or sikh services? Not asked Do you belong to any clubs or organizations such as Not asked mormon groups, unions, fraternal or athletic groups, or school groups? How often do you attend meetings of the clubs or Not asked organizations you belong to? Are you now , , , , never Never 2018 or living with a partner? Physical Activity Answer Date Recorded On average, how many days per week do you engage in moderate to 0 days 2018 strenuous exercise (like walking fast, running, jogging, dancing, swimming, biking, or other activities that cause a light or heavy sweat)? On average, how many minutes do you engage in exercise at this 0 min 2018 level? Stress Answer Date Recorded Do you feel stress - tense, restless, nervous, or anxious, Not at all 2018 or unable to sleep at night because your mind is troubled all the time - these days? Financial Resource Strain Answer Date Recorded How hard is it for you to pay for the very basics like Not hard at all 2018 food, housing, medical care, and heating? Intimate Partner Violence Answer Date Recorded Within the last year, have you been afraid of your partner or No 10/26/2018 ex-partner? Within the last year, have you been humiliated or emotionally No 10/26/2018 abused in other ways by your partner or ex-partner? Within the last year, have you been kicked, hit, slapped, or No 10/26/2018 otherwise physically hurt by your partner or ex-partner? Within the last year, have you been raped or forced to have any No 10/26/2018 kind of sexual activity by your partner or ex-partner? Food Insecurity Answer Date Recorded Within the past 12 months, you worried that your food would Never true 2018 run out before you got money to buy more. Within the past 12 months, the food you bought just didn't Never true 2018 last and you didn't have money to get more. Transportation Needs Answer Date Recorded In the past 12 months, has lack of transportation kept you from No 10/26/2018 medical appointments or from getting medications? In the past 12 months, has lack of transportation kept you from No 10/26/2018 meetings, work, or getting things needed for daily living? Sex Assigned at Date Recorded Not on file documented as of this encounter Last Filed Vital Signs Vital Sign Reading Time Taken Comments Blood Pressure 112/60 07/31/2019 1:04 PM EST Pulse 84 07/31/2019 1:04 PM EST Temperature 37 07/31/2019 1:04 PM EST C (98.6 F) Respiratory Rate - - Oxygen Saturation 91% 07/31/2019 1:04 PM EST Inhaled Oxygen Concentration - - Weight 78.5 kg (173 lb) 07/31/2019 1:04 PM EST Height 172.7 cm (5' 8") 07/31/2019 1:04 PM EST Body Mass Index 26.3 07/31/2019 1:04 PM EST documented in this encounter Patient Instructions Patient InstructionsRaghu Buckner PA - 07/31/2019 1:00 PM SHREYA have prescribed you the followin. Doxycyline. Antibiotic. Take twice per day with food and a full glass of water, not milk. 2. Prednisone. Steroid. Take two tablets at once in the morning. 3. Mucinex. Helps clear mucus. Take every 12 hours to help you cough better. Chest x-ray today, I will call with results. You need to continue to take your home oxygen. If this continues to worsen, you need to go to the emergency room. Call if you have any questions or concerns. documented in this encounter Progress Notes Raghu Buckner PA - 07/31/2019 1:00 PM EST PATIENT: José Miguel Mehta : 1955 DATE OF SERVICE: 07/31/2019 CHIEF COMPLAINT: Chief Complaint Patient presents with ? COPD Approx. 7-10 day ago his O2 was in the 40s, today it is between 86-91 it has been fluctuating since then. Subjective HISTORY OF PRESENT ILLNESS: José Miguel Mehta is a 63-y.o. male. José Miguel Mehta is a 63-y.o. male who presents with shortness of breath, cough and wheezing. Symptoms began 10 days ago. Symptoms: Does worsen with exertion. Sputum is clear and scant. Fever: no fever, chills, or night sweats. . Patient can walk few feet before resting. Patient currently is on nasal cannula oxygen at 2 L/min, prescribed. However, he is not on oxygen here in the office today and states that he "left it at home." According to Dr. Aguiar last note, patient admits to poor compliance to his inhalers and takes them on an as needed basis. Patient states that he has been taking the inhalers as prescribed daily for the last 10 days. Respiratory history: chronic obstructive pulmonary disease and asthma. Patient states that one week ago his oxygen saturation dropped low as 40s, but has since improved. Today he states that his oxygen levels have been in the high 80s without home oxygen therapy. Past Medical History: Diagnosis Date ? Asthma-COPD overlap syndrome (HCC) 02/27/2016 ? ECG abnormality icomplete RBBB, left posterior fasicular block ? 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 Hx of CT scan of chest 01/2016 Subcentimeter size left upper lobe pulmonary nodule. Following with pulmonology ? Hx of exercise stress test 01/2016 \\ ? Hx of magnetic resonance imaging of brain and brain stem 01/2016 IMPRESSION: no masses,no encephalopathy;cyst like structure measuring about 4 x 7mm, likely represents ? 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 Oxygen dependent 2 L NC ? Premature baby ? Syncope seeing Dr. Dennis, has had an EEG and now has an event recorder; carotid ultrasound and brain MRInegative. Family History Problem Relation Age of Onset ? Diabetes Mother ? Stroke Mother ? Diabetes Sister ? Dementia Sister ? ? Heart Father thinks MO ? No Known Problems Daughter ? No Known Problems Son ? Diabetes Maternal Aunt ? Heart Maternal Aunt ? No Known Problems Daughter ? Dementia Sister ? ? Dementia Sister ? ? Cancer Other three cousins of cancer, unsure what kind Current Outpatient Medications Medication Sig ? albuterol (PROVENTIL, VENTOLIN) (2.5 MG/3ML) 0.083% Inhalation Nebu Soln 3 mL by Inhalation-SVN route EVERY FOUR HOURS NEEDED (bad wheezing). ? albuterol HFA (VENTOLIN HFA) 108 (90 Base) MCG/ACT Inhalation Aero Soln Take 2 Puffs by inhalation EVERY FOUR HOURS NEEDED (Asthma). ? doxycycline (VIBRAMYCIN) 100 MG Oral Tab Take 1 Tab by mouth TWICE DAILY. ? jzprqcltjib-ortljspxggitg-btlgybyopb (TRELEGY ELLIPTA) 100-62.5-25 MCG/ INH Inhalation AEROSOL POWDER, BREATH ACTIVATED Take 1 INHL by inhalation DAILY. ? guaifenesin (MUCINEX) 600 MG Oral TABLET SR 12 HR Take 1 Tab by mouth EVERY TWELVE HOURS. ? ipratropium (ATROVENT) 0.03 % Nasal Solution [place] 2 Sprays in nose TWICE DAILY. ? predniSONE (DELTASONE) 20 MG Oral Tab Take 2 Tabs by mouth DAILY. No current facility-administered medications for this visit. No Known Allergies Social History Socioeconomic History ? Marital status: Single Spouse name: Not on file ? Number of children: 3 ? Years of education: Not on file ? Highest education level: Not on file Occupational History ? Not on file Social Needs ? Financial resource strain: Not hard at all ? Food insecurity Worry: Never true Inability: Never true ? Transportation needs Medical: No Non-medical: No Tobacco Use ? Smoking status: Current Every Day Smoker Packs/day: 2.00 Years: 48.00 Pack years: 96.00 Types: Cigarettes ? Smokeless tobacco: Never Used ? Tobacco comment: currently 1 ppd 06/01/19 Substance and Sexual Activity ? Alcohol use: Yes Alcohol/week: 6.0 standard drinks Types: 6 Cans of beer per week ? Drug use: No ? Sexual activity: Not Currently Partners: Female Lifestyle ? Physical activity Days per week: 0 days Minutes per session: 0 min ? Stress: Not at all Relationships ? Social connections Talks on phone: Twice a week Gets together: Twice a week Attends sikh service: Not on file Active member of club or organization: Not on file Attends meetings of clubs or organizations: Not on file Relationship status: Never ? Intimate partner violence Fear of current or ex partner: No Emotionally abused: No Physically abused: No Forced sexual activity: No Other Topics Concern ? Back Care Not Asked ? Bike Helmet Not Asked ? Blood Transfusions Not Asked ? Caffeine Concern Yes Comment: 3/4 pot coffee ? Exercise Not Asked ? Hobby Hazards Not Asked ? International Travel Not Asked ? Service Not Asked ? Occupational Exposure Not Asked ? Seat Belt Not Asked ? Self-Exams Not Asked ? Sleep Concern Not Asked ? Special Diet Not Asked ? Stress Concern Not Asked ? 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 3 adult children; no relationship with them REVIEW OF SYSTEMS: Review of Systems Constitutional: Positive for diaphoresis and malaise/fatigue. Negative for chills and fever. Respiratory: Positive for cough, sputum production, shortness of breath and wheezing. Negative for hemoptysis. Cardiovascular: Negative for chest pain, palpitations and leg swelling. Gastrointestinal: Negative for diarrhea, nausea and vomiting. Neurological: Negative for dizziness, loss of consciousness and headaches. Objective PHYSICAL EXAM: VITALS: BP 112/60 (BP Location: Left arm, Patient Position: Sitting) | Pulse 84 | Temp 98.6 F(37 C) (Tympanic) | Ht 5' 8" (1.727 m) | Wt 173 lb ( 78.5 kg) | SpO2 91% | BMI 26.30 kg/m Body mass index is 26.3 kg/m. Physical Exam Vitals signs reviewed. Constitutional: General: He is not in acute distress. Appearance: Normal appearance. Eyes: Pupils: Pupils are equal, round, and reactive to light. Cardiovascular: Rate and Rhythm: Normal rate and regular rhythm. Heart sounds: No murmur. No friction rub. No gallop. Pulmonary: Effort: Pulmonary effort is normal. Breath sounds: Wheezing present. No rhonchi or rales. Chest: Chest wall: No tenderness. Abdominal: General: Abdomen is flat. Bowel sounds are normal. Palpations: Abdomen is soft. Skin: General: Skin is warm and dry. Neurological: General: No focal deficit present. Mental Status: He is alert. Mental status is at baseline. ASSESSMENT / IMPRESSION: ICD-9-CM ICD-10-CM 1. COPD with acute exacerbation ([facility]) 491.21 J44.1 XR CHEST 2 VIEW PA AND LATERAL (STANDARD) guaifenesin (MUCINEX) 600 MG Oral TABLET SR 12 HR predniSONE (DELTASONE) 20 MG Oral Tab doxycycline (VIBRAMYCIN) 100 MG Oral Tab Patient's oxygen stats are at 91% today, which is normal for him on room air according to previous notes. However, I strongly urged that he use his home oxygen at all times, and stressed the importanceof using his inhalers daily to reduce the risk of exacerbations; these medications other than albuterol are not on an as-needed basis. I have prescribed you the followin. Doxycyline. Antibiotic. Take twice per day with food and a full glass of water, not milk. 2. Prednisone. Steroid. Take two tablets at once in the morning. 3. Mucinex. Helps clear mucus. Take every 12 hours to help you cough better. Chest x-ray today, I will call with results. You need to continue to take your home oxygen. If this continues to worsen, you need to go to the emergency room. Call if you have any questions or concerns. Author: ROSEANN Brewster 07/31/2019 13:40 documented in this encounter Plan of Treatment Date Type Specialty Care Team Description 08/07/2019 Office Visit Internal Medicine Raghu Buckner PA [address] [place] [address] 10/19/2019 Office Visit Pulmonary Francisco Aguiar MD [address] [place] [address] Name Type Priority Associated Diagnoses Date/Time XR CHEST 2 VIEW PA Imaging Routine COPD with acute 07/31/2019 1:30 PM AND LATERAL exacerbation (HCC) EST (STANDARD) Name Type Priority Associated Diagnoses Order Schedule XR CHEST 2 VIEW PA Imaging Routine COPD with acute Expected: 07/31/2019, AND LATERAL exacerbation (HCC) Expires: 07/30/2020 (STANDARD) Health Maintenance Due Date Last Done Comments DTaP/Tdap/Td Vaccines (1 - 1968 Tdap) FECAL OCCULT BLOOD TEST 11/14/2007 ZOSTER IMMUNIZATION SERIES 11/14/2007 (1 of 2) INFLUENZA VACCINE (#1) 2019 DIABETES SCREENING 09/16/2019 09/15/2018, 11/29/2015 DEPRESSION SCREENING 10/27/2019 10/26/2018 MEDICARE ANNUAL WELLNESS 10/27/2019 10/26/2018 VISIT LUNG CANCER SCREENING 11/18/2019 11/17/2018, 11/17/2018, 11/17/2018, Additional history exists LIPID DISORDER SCREENING 11/28/2020 11/29/2015 HEPATITIS A IMMUNIZATION Aged Out No longer eligible SERIES based on patient's age to complete this topic HPV IMMUNIZATION SERIES Aged Out No longer eligible based on patient's age to complete this topic MENINGOCOCCAL VACCINE IMM Aged Out No longer eligible based on patient's age to complete this topic documented as of this encounter Goals Goal Patient Goal Associated Recent Patient-Stated? Author Type Problems Progress Smoking COPD No Timothy Broderick MD Note: This is an individualized treatment (COPD) goal for José Miguel Mehta: Quit smoking immediately! Your provider has information and resources that may help you to quit. Keep immunizations current Lifestyle No Zoya Broderick MD Note: This is an individualized lifestyle goal for José Miguel Ralphirma: Please be sure to keep up-to-date on recommended immunizations. For example, this would include a yearly influenza vaccine. Immunization status can be seen by looking at the Health Maintenance sections of your [facility], Plan of Care, and any After Visit Summaries. Take all prescribed medications as Self-management No Zoya Broderick MD directed Note: This is an individualized self-management goal for José Miguel Ponce Janine: Please take all prescribed medications as directed. 1. Do not skip doses. If you cannot afford your medications, talk with your doctor. 2. Use a pill reminder system such as a pill box if needed. Your pharmacist can help you with this. 3. Contact your Pharmacy 5 days before your medication runs out. If you cannot take your medications for any reasons, talk with your doctor. 4. Please bring all of your medication bottles and inhalers (or a list of all your medications/inhalers) with you to every visit. Potential barriers to meeting all of your care plan goals will continue to be addressed on an ongoing basis. documented as of this encounter Results Not on filedocumented in this encounter Visit Diagnoses Diagnosis COPD with acute exacerbation (HCC) Obstructive chronic bronchitis with exacerbation documented in this encounter Guarantor Name Account Type Relation to Date of Phone Billing Patient Address José Miguel Mehta Personal/Family 1955 [phone] [id number] [place], [place] (Work) [id number] documented as of this encounter
--- OUTSIDE RECORDS SUMMARY | 2019-09-15 15:11 | XMS REPORT | Summary of Care ---
:1955 Author Organization [facility] Address [address] [facility] [place] [address] Care Team Providers Name Role Phone Zoya Broderick MD Primary Care Provider Francisco Zhu Unavailable Reason for Visit Reason Comments Follow Up COPD, He feels much better Encounter Details Date Type Department Care Team Description 08/07/2019 Office Visit [facility] Raghu Buckner, COPD with acute Medicine [place] exacerbation ([facility]) [address] (Primary Dx) [place] [address] [place] [address] [phone] Allergies No Known Allergiesdocumented as of this encounter (statuses as of 08/07/2019) Medications Medication Sig Dispensed Refills Start Date End Date Status ipratropium [place] 2 Sprays in 1 [place] 5 12/27/2017 Active (ATROVENT) 0.03 % nose [...] as of this encounter (statuses as of 08/07/2019) Active Problems Problem Noted Date Combined forms [...] as of this encounter (statuses as of 08/07/2019) Immunizations Name Administration Dates Next Due Pneumococcal [...] week 2018 How often do you attend orthodox or zoroastrianism services? Not asked Do you belong to any clubs or organizations such as Not asked orthodox groups, unions, fraternal or athletic groups, or [...] Sign Reading Time Taken Comments Blood Pressure 124/70 08/07/2019 10:51 AM EST Pulse 72 08/07/2019 10:51 AM EST Temperature 36.4 08/07/2019 10:51 AM EST C (97.6 F) Respiratory Rate - - Oxygen Saturation 97% 08/07/2019 10:51 AM EST Inhaled Oxygen Concentration - - Weight 81.6 kg (180 lb) 08/07/2019 10:51 AM EST Height 172.7 cm (5' 8") 08/07/2019 10:51 AM EST Body Mass Index 27.37 08/07/2019 10:51 AM EST documented in this encounter Progress Notes Raghu Buckner PA - 08/07/2019 10:40 AM EST PATIENT: José Miguel Mehta : 1955 DATE OF SERVICE: 08/07/2019 CHIEF COMPLAINT: Chief Complaint Patient presents with ? Follow Up COPD, He feels much better Subjective HISTORY OF PRESENT ILLNESS: José Miguel Mehta is a 63-y.o. male. José Miguel Mehta is a 63-y.o. male who presents for follow up on shortness of breath, cough and wheezing. Symptoms began 10 days ago. Symptoms: Does worsen with exertion. Sputum is clear and scant. Fever: no fever, chills, or night sweats. . Patient can walk few feet before resting. States that he is feeling much improved since our last visit, and no longer complains of sputum production like he did at our last visit. CXR did not show any acute pathology, unchanged from last image. Past Medical History: Diagnosis Date ? Asthma-COPD [...] x 7mm, likely represents ? 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 Oxygen dependent 2 L NC ? Premature baby ? Syncope seeing Dr. Dennis, has had an EEG and now has an event recorder; carotid ultrasound and brain MRInegative. Family History Problem Relation Age of Onset ? Diabetes Mother ? Stroke Mother ? Diabetes Sister ? Dementia Sister ? ? Heart Father thinks DC ? No Known Problems Daughter ? No [...] 1 Tab by mouth TWICE DAILY. ? pqlgvjfxxed-wbvzzphznwgmz-jembsujxyi (TRELEGY ELLIPTA) 100-62.5-25 MCG/ INH Inhalation AEROSOL POWDER, BREATH ACTIVATED Take 1 INHL by inhalation DAILY. ? guaifenesin (MUCINEX) 600 MG Oral TABLET SR 12 HR Take 1 Tab by mouth EVERY TWELVE HOURS. ? ipratropium (ATROVENT) 0.03 % Nasal Solution [place] 2 Sprays in nose TWICE DAILY. ? 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 3 adult children; no relationship with them REVIEW OF SYSTEMS: Review of Systems Constitutional: Negative for chills, diaphoresis, fever and malaise/fatigue. Respiratory: Positive for cough. Negative for hemoptysis, sputum production, shortness of breath andwheezing. Cardiovascular: Negative for chest pain, palpitations and leg swelling. Gastrointestinal: Negative for diarrhea, nausea and vomiting. Neurological: Negative for dizziness, loss of consciousness and headaches. Objective PHYSICAL EXAM: VITALS: BP 124/70 (BP Location: Left arm, Patient Position: Sitting) | Pulse 72 | Temp 97.6 F(36.4 C) (Tympanic) | Ht 5' 8" (1.727 m) | Wt 180 lb (81.6 kg) | SpO2 97% | BMI 27.37 kg/m Body mass index is 27.37 kg/m. Physical Exam Vitals signs reviewed. Constitutional: General: He is not in acute distress. Appearance: Normal appearance. Eyes: Pupils: Pupils are equal, round, and reactive to light. Cardiovascular: Rate and Rhythm: Normal rate and regular rhythm. Heart sounds: No murmur. No friction rub. No gallop. Pulmonary: Effort: Pulmonary effort is normal. Breath sounds: No wheezing, rhonchi or rales. Chest: Chest wall: No tenderness. Abdominal: General: Abdomen is flat. Bowel sounds are normal. Palpations: Abdomen is soft. Skin: General: Skin is warm and dry. Neurological: General: No focal deficit present. Mental Status: He is alert. Mental status is at baseline. ASSESSMENT / IMPRESSION: ICD-9-CM ICD-10-CM 1. COPD with acute exacerbation (HCC) 491.21 J44.1 Patient much improved from last visit, no longer ill-appearing. Complete course of antibiotics. You need to continue to take your home oxygen. Follow up routinely. Author: ROSEANN Brewster 08/07/2019 13:01 documented in this encounter Plan of Treatment Date Type Specialty Care Team Description 10/19/2019 Office Visit Pulmonary Francisco Zhu MD [address] [place] [address] [phone] Health Maintenance Due Date Last Done Comments FECAL OCCULT BLOOD TEST 11/14/2007 ZOSTER IMMUNIZATION SERIES 11/14/2007 (1 of 2) INFLUENZA VACCINE (#1) 2019 DIABETES SCREENING 09/16/2019 09/15/2018, 11/29/2015 DEPRESSION SCREENING 10/27/2019 10/26/2018 MEDICARE ANNUAL WELLNESS 10/27/2019 10/26/2018 VISIT DTaP/Tdap/Td Vaccines (1 - 11/01/2019 Postponed from Tdap) 1968 (Other) LUNG CANCER SCREENING 11/18/2019 11/17/2018, 11/17/2018, 11/17/2018, [...] an individualized lifestyle goal for José Miguel Mehta: Please be sure to keep up-to-date on recommended immunizations. For example, this would include a yearly influenza vaccine. Immunization status can be seen by looking at the Health Maintenance sections of your [facility], Plan of Care, and any After Visit Summaries. Take all prescribed medications as Self-management No Zoya Broderick MD directed Note: This is an individualized self-management goal for José Miguel Mehta: Please take all prescribed medications as directed. [...] Patient Address José Miguel Mehta Personal/Family 1955 [phone] [address] [place], [place] (Work) [address] documented as of this encounter
[2019-09-15 17:31] VITALS: BP 110/68
== END 2019-09-15 17:39 | disposition home or self-care (01) ==
LOC: ED 13:18
DX: J44.1 Chronic obstructive pulmonary disease with (acute) exacerbation (principal); R06.02 Shortness of breath; R07.89 Other chest pain; R05 Cough; F17.210 Nicotine dependence, cigarettes, uncomplicated; Z79.899 Other long term (current) drug therapy; Z20.828 Contact with and (suspected) exposure to other viral communicable diseases
CPT/HCPCS: 36415; 71045; 80053; 82803; 84484; 85025; 87635; 93005; 96374; 99284; A9270-GY; J2930; J7512